=== PATIENT | male | born 1975 | race Caucasian/White ===

== ENCOUNTER 2017-07-13 12:42 | Emergency (ER) | payer OTHER ==
[~2017-07-13] VITALS: Ht 190.5 cm; Wt 122.5 kg
[~2017-07-13 12:42] MED LIST: CEPHALEXIN500 MG PO; IBUPROFEN600 MG PO; NORCO 5-325 TA1 EACH PO
[2017-07-13] MEDS ORDERED: LYRICA150 MG PO (13:18)
[2017-07-13] MEDS ORDERED: NORCO 7.5-3251 EACH PO (13:19)
--- OUTSIDE RECORDS SUMMARY | 2017-07-13 13:24 | XMS | Clinical Summary ---
Demographics + + + | Address | [address] | | | [place] [address] | + + + | Home Phone | | + + + | Preferred Language | Unknown | + + + | Marital Status | Single | + + + | Anabaptist Affiliation | Unknown | + + + | Race | Unknown | + + + | Ethnic Group | Unknown | + + + Author + + + | Author | [facility] | + + + | Organization | [facility] | + + + | Address | Unknown | + + + | Phone | Unavailable | + + + Support + + +---------+ + | Name | Relationship | Address | Phone | + + +---------+ + | Fanny Cano | ECON | Unknown | | + + +---------+ + Care Team Providers + +------+ + | Care Sand Cutting Machine Operator Name | Role | Phone | + +------+ + | Ryan Brown DO | PP | | + +------+ + Allergies Not on File Current Medications + + +-------+---------+------+------+-------+ | Prescription | Sig. | Disp. | Refills | Star | End | Statu | | | | | | t | Date | s | | | | | | Date | | | + + +-------+---------+------+------+-------+ | atorvastatin | | | | 09/2 | | Activ | | (LIPITOR) 40 MG | | | | 1/20 | | e | | tablet | | | | 16 | | | + + +-------+---------+------+------+-------+ | gabapentin | | | | 07/1 | | Activ | | (NEURONTIN) 300 MG | | | | 2/20 | | e | | capsule | | | | 16 | | | + + +-------+---------+------+------+-------+ | | | | | 09/2 | | Activ | | HYDROcodone-acetamin | | | | 2/20 | | e | | ophen (NORCO) 10-325 | | | | 16 | | | | MG per tablet | | | | | | | + + +-------+---------+------+------+-------+ | lisinopril | | | | 09/2 | | Activ | | (ZESTRIL) 10 MG | | | | 1/20 | | e | | tablet | | | | 16 | | | + + +-------+---------+------+------+-------+ | metFORMIN | | | | 09/2 | | Activ | | (GLUCOPHAGE-XR) 500 | | | | 1/20 | | e | | MG 24 hr tablet | | | | 16 | | | + + +-------+---------+------+------+-------+ | insulin glargine | Inject 26 Units into | | | | | Activ | | (LANTUS) 100 UNIT/ML | the skin nightly. | | | | | e | | injection | | | | | | | + + +-------+---------+------+------+-------+ | insulin aspart | Inject 10 Units into | | | | | Activ | | (NOVOLOG) 100 | the skin 3 (three) | | | | | e | | UNIT/ML injection | times daily before | | | | | | | | meals. | | | | | | + + +-------+---------+------+------+-------+ Active Problems No known active problems Family History + + +------+ + | Medical History | Relation | Name | Comments | + + +------+ + | Diabetes type II | Father | | | + + +------+ + + +------+--------+ + | Relation | Name | Status | Comments | + +------+--------+ + | Father | | | | + +------+--------+ + Social History + +-------+ +--------+------+ | Tobacco Use | Types | Packs/Day | Years | Date | | | | | Used | | + +-------+ +--------+------+ | Current Every Day | | 0.5 | | | | Smoker | | | | | + +-------+ +--------+------+ + + +---------+ + | Alcohol Use | Drinks/We | oz/Week | Comments | | | ek | | | + + +---------+ + | No | | | | + + +---------+ + + + + | Sex Assigned at | Date Recorded | | | | + + + | Not on file | | + + + Last Filed Vital Signs + + + + | Vital Sign | Reading | Time Taken | + + + + | Blood Pressure | 112/78 | 06/17/2016 3:51 PM PDT | + + + + | Pulse | 98 | 06/17/2016 3:51 PM PDT | + + + + | Temperature | - | - | + + + + | Respiratory Rate | - | - | + + + + | Oxygen Saturation | 98% | 06/17/2016 3:51 PM PDT | + + + + | Inhaled Oxygen | - | - | | Concentration | | | + + + + | Weight | 124.6 kg (274 lb | 06/17/2016 3:51 PM PDT | | | 12.8 oz) | | + + + + | Height | - | - | + + + + | Body Mass Index | - | - | + + + + Plan of Treatment + + + + + | Health Maintenance | Due Date | Last Done | Comments | + + + + + | Vaccine: | | | | | Dtap/Tdap/Td (1 - | 2 | | | | Tdap) | | | | + + + + + | Vaccine: | | | | | Pneumococcal 19-64 | 2 | | | | (PPSV23 only) Medium | | | | | Risk (1 of 1 - | | | | | PPSV23) | | | | + + + + + | Vaccine: Influenza | | | | | (Season Ended) | 8 | | | + + + + + Results Not on filefrom Last 3 Months Insurance + +--------+ +------+-------+ + | Payer | Benefi | Subscriber | Type | Phone | Address | | | t Plan | ID | | | | | | / | | | | | | | Group | | | | | + +--------+ +------+-------+ + | MEDICAID | [facility] | xxxxxxxx | | | [address] | | | [place] | | | | [place] | | | [place] | | | | [phone] | | | 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
--- OUTSIDE RECORDS SUMMARY | 2017-07-13 13:24 | XMS | Clinical Summary ---
Demographics + + + | Address | [address] | | | [place] [address] | + + + | Home Phone | | + + + | Preferred Language | Unknown | + + + | Marital Status | | + + + | Mormon Affiliation | UNK | + + + | Race | White | + + + | Ethnic Group | Not or | + + + Author + + + | Author | [facility] | + + + | Organization | [facility] | + + + | Address | Unknown | + + + | Phone | Unavailable | + + + Support + + +---------+ + | Name | Relationship | Address | Phone | + + +---------+ + | none per patient | ECON | Unknown | Unavailable | + + +---------+ + Care Team Providers + +------+ + | Care Car Supervisor Name | Role | Phone | + +------+ + | No Pcp Per Patient | PP | Unavailable | + +------+ + Source Comments JULIENNE is fully live on both [facility] and [facility] Allergies + + + + + + | Active Allergy | Reactions | Severity | Noted | Comments | | | | | Date | | + + + + + + | Penicillin G | | | 10/03/19 | | | | | | 09 | | + + + + + + Current Medications + + + +---------+------+------+-------+ | Prescription | Sig. | Disp. | Refills | Star | End | Statu | | | | | | t | Date | s | | | | | | Date | | | + + + +---------+------+------+-------+ | | Take 1 Tab by mouth | | | | | Activ | | pseudoephedrine-acet | every six hours as | | | | | e | | aminophen (TYLENOL | needed. | | | | | | | SINUS DAY-NIGHT | | | | | | | | PACK) 30-500 mg Oral | | | | | | | | Tablet | | | | | | | + + + +---------+------+------+-------+ | | Take 1 Tab by mouth | 24 | 0 | 07/1 | | Activ | | hydrocodone-acetamin | every four hours as | (twenty | | 3/20 | | e | | ophen 5-500 mg Oral | needed. NTE 8 tabs | frou) | | 09 | | | | Tablet | per day. | | | | | | + + + +---------+------+------+-------+ | oxymetazoline 0.05 | Instill 2 Sprays | 15 ml | 0 | 07/1 | | Activ | | % Nasal Aerosol, | into each nostril | | | 3/20 | | e | | [place] | two times daily. Use | | | 09 | | | | | for only 3 days. | | | | | | + + + +---------+------+------+-------+ Active Problems Not on file Social History + +-------+ +--------+------+ | Tobacco Use | Types | Packs/Day | Years | Date | | | | | Used | | + +-------+ +--------+------+ | Never Assessed | | | | | + +-------+ +--------+------+ + + + | Sex Assigned at | Date Recorded | | | | + + + | Not on file | | + + + Last Filed Vital Signs + + + + | Vital Sign | Reading | Time Taken | + + + + | Blood Pressure | 129/87 | 10/02/2008 4:26 PM PDT | + + + + | Pulse | 106 | 10/02/2008 4:26 PM PDT | + + + + | Temperature | 37 C (98.6 F) | 10/02/2008 4:26 PM PDT | + + + + | Respiratory Rate | 16 | 10/02/2008 4:26 PM PDT | + + + + | Oxygen Saturation | 97% | 10/02/2008 4:26 PM PDT | + + + + | Inhaled Oxygen | - | - | | Concentration | | | + + + + | Weight | - | - | + + + + | Height | - | - | + + + + | Body Mass Index | - | - | + + + + Plan of Treatment + + + + + | Health Maintenance | Due Date | Last Done | Comments | + + + + + | INFLUENZA VACCINE | | | | | (FLU SHOT) | 8 | | | + + + + + Results Not on filefrom Last 3 Months"
--- OUTSIDE RECORDS SUMMARY | 2017-07-13 13:24 | XMS | Clinical Summary ---
Demographics + + + | Address | [address] | | | [place] [address] | + + + | Home Phone | | + + + | Preferred Language | Unknown | + + + | Marital Status | Single | + + + | Scientologist Affiliation | Unknown | + + + | Race | Unknown | + + + | Ethnic Group | Unknown | + + + Author + + + | Author | [facility] | + + + | Organization | [facility] | + + + | Address | Unknown | + + + | Phone | Unavailable | + + + Support + + +---------+ + | Name | Relationship | Address | Phone | + + +---------+ + | Fanny Cano | ECON | Unknown | | + + +---------+ + Care Team Providers + +------+ + | Care Senior Product Analyst Name | Role | Phone | + [...] + +--------+ +------+-------+ + | MEDICAID | [facility] | xxxxxxxx | | | [address] | | | N | | | | [place] | | | [place] | | | | [phone] | | | 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
--- OUTSIDE RECORDS SUMMARY | 2017-07-13 13:24 | XMS | Clinical Summary ---
Demographics + + + | Address | [address] | | | [place] [address] | + + + | Home Phone | | + + + | Preferred Language | Unknown | + + + | Marital Status | | + + + | Zoroastrian Affiliation | UNK | + + + [...] Team Providers + +------+ + | Care Billing Specialist Name | Role | Phone | + +------+ + | No Pcp Per Patient | PP | Unavailable | + +------+ + Source Comments JULIENNE is fully live on both [facility] Ambulatory and [facility] InPatient.[facility] Allergies + + + + + [...] | 3/20 | | e | | [place] | two times daily. Use | | [...]
[2017-07-13] MEDS ORDERED: CLEOCIN HCL300 MG PO (15:59)
== END 2017-07-13 17:00 | disposition home or self-care (01) ==
LOC: ED 12:42
PROC: 2W38X1Z Immobilization of Right Upper Extremity using Splint (ICD-10-PCS; principal; 2017-07-13)
DX: S91.111A Laceration without foreign body of right great toe without damage to nail, initial encounter (principal); E11.9 Type 2 diabetes mellitus without complications; F17.200 Nicotine dependence, unspecified, uncomplicated; Z88.0 Allergy status to penicillin; Z79.899 Other long term (current) drug therapy; Z89.412 Acquired absence of left great toe; X58.XXXA Exposure to other specified factors, initial encounter
CPT/HCPCS: 29515; 36415; 73660; 80053; 85025; 99283

== ENCOUNTER 2017-07-27 17:59 | Emergency (ER) | payer OTHER ==
[~2017-07-27] VITALS: Ht 190.5 cm; Wt 122.5 kg
[~2017-07-27 17:59] MED LIST changes: +CLEOCIN HCL300 MG PO; +LYRICA150 MG PO; +NORCO 7.5-3251 EACH PO
[2017-07-27] MEDS ORDERED: CEPHALEXIN500 MG PO (19:27)
[2017-07-27] MEDS ORDERED: BACTRIM DS TAB1 EACH PO (19:27)
== END 2017-07-27 19:48 | disposition home or self-care (01) ==
LOC: ED 17:59
DX: E11.628 Type 2 diabetes mellitus with other skin complications (principal); L08.9 Local infection of the skin and subcutaneous tissue, unspecified; E11.9 Type 2 diabetes mellitus without complications; F17.200 Nicotine dependence, unspecified, uncomplicated; Z88.0 Allergy status to penicillin; Z79.899 Other long term (current) drug therapy
CPT/HCPCS: 99283

== ENCOUNTER 2017-12-23 13:08 | Observation (INO) | payer OTHER ==
[~2017-12-23] VITALS: Ht 190.5 cm; Wt 122.7 kg
--- OUTSIDE RECORDS SUMMARY | ~2017-12-23 | XMS | Encounter Summary ---
Demographics + + + | Address | [address] [place] [address] | | | [place] [address] | + + + | Home Phone | | + + + | Preferred Language | Unknown | + + + | Marital Status | | + + + | Caodaism Affiliation | Unknown | + + + | Race | Unknown | + + + | Ethnic Group | Unknown | + + + Author + + + | Author | [facility] | | | [facility] [place] | + + + | Organization | [facility] | | | [facility] [place] | + + + | Address | Unknown | + + + | Phone | Unavailable | + + + Support + + +---------+ + | Name | Relationship | Address | Phone | + + +---------+ + | [place]anny [place] | ECON | Unknown | | + + +---------+ + Care Team Providers + +------+ + | Care Electric Range Assembler Name | Role | Phone | + +------+ + | Ryan Brown DO | PCP | | + +------+ + Encounter Details +--------+ + + + + | Date | Type | Department | Care Team | Description | +--------+ + + + + | 10/14/ | Procedure | [facility] | | | | 2017 | Pass | [facility] | | | | | | [address] | | | | | | [place] | | | | | | [phone] | | | | | | [phone] | | | +--------+ + + + + Social History + +-------+ +--------+------+ | Tobacco Use | Types | Packs/Day | Years | Date | | | | | Used | | + +-------+ +--------+------+ | Current Every Day | | 0.5 | 20 | | | Smoker | | | | | + +-------+ +--------+------+ + +---+---+---+ | Smokeless Tobacco: | | | | | Former User | | | | + +---+---+---+ + + +---------+ + | Alcohol Use | Drinks/We | oz/Week | Comments | | | ek | | | + + +---------+ + | No | | | | + + +---------+ + + + + | Sex Assigned at | Date Recorded | | | | + + + | Not on file | | + + + as of this encounter Plan of Treatment Not on fileas of this encounter Visit Diagnoses Not on filein this encounter"
--- OUTSIDE RECORDS SUMMARY | ~2017-12-23 | XMS | Encounter Summary ---
Demographics + + + | Address | [address] [place] [address] | | | [place] [address] | + + + | Home Phone | | + + + | Preferred Language | Unknown | + + + | Marital Status | | + + + | Worship Affiliation | Unknown | + + + | Race | Unknown | + + + | Ethnic Group | Unknown | + + + Author + + + | Author | [facility] | | | and [place] | + + + | Organization | [facility] | | [...] Team Providers + +------+ + | Care Supervisor [employer]ing Cler[employer] Name | Role | Phone | + +------+ + | Ryan Brown DO | PCP | | + +------+ + Reason for Visit Auth/Cert +--------+--------+ + + + + | Status | Reason | Specialty | Diagnoses / | Referred By | Referred To | | | | | Procedures | Contact | Contact | +--------+--------+ + + + + | | | | Diagnoses | | | | | | | Right foot | | | | | | | pain Right | | | | | | | Foot Pain | | | | | | | Procedures | | | | | | | Right Big | | | | | | | Toe Wound | | | | | | | Debridement | | | | | | | w/ Removal | | | | | | | of All | | | | | | | Nonviable | | | | | | | Tissue w/ | | | | | | | Percutaneous | | | | | | | Achilles | | | | | | | Tendon | | | | | | | Lengthening | | | +--------+--------+ + + + + Encounter Details +--------+---------+ + + + | Date | Type | Department | Care Team | Description | +--------+---------+ + + + | 10/21/ | [facility] | [facility] | Kaela Gonzales, | Right Big Toe Wound | | 2018 | | [facility] | DPM [address] | Debridement w/ | | | | [address] | [place], [place] | Removal of All | | | | [place], [place] | [address] | Nonviable Tissue | | | | [phone] | [phone] | | | | | [phone] | | | +--------+---------+ + + + Social History + + [...] + + + as of this encounter Last Filed Vital Signs + + + [...] | Body Mass Index | 33.95 | 10/21/2017 0628 PDT | + + + + in this encounter Discharge Instructions Tyrel Hartman RN - 10/21/2017Formatting of this note may be different from the origi nal. Discharge Instructions for Foot Surgery Arrange to have an adult drive you home after surgery. If you had general anesthesia, it ma y take a day or more to fully recover. So, for at least the next 24 hours: Do not drive or u se machinery or power tools; do not drink alcohol; and do not make any major decisions. Diet Here are some dietary suggestions following surgery: Start with liquids and light foods (like dry toast, bananas, and applesauce). As you fee l up to it, slowly return to your normal diet. Drink at least6 to8 glasses of water or other nonalcoholic fluids a day. To avoid nausea, eat before taking narcotic pain medicines. Medicines It is important to follow these directions: Take all medicines as instructed. Take pain medicines on time. Do not wait until the pain is bad before taking your medici stan. Avoid alcohol while on pain medicines. Activity These instructions are to help with your recovery: Sit or lie down when possible. Put a pillow under your heel to raise your foot above the level of your heart. Wrap an ice pack or bag of frozen peas in a thin cloth. Place it over your bandaged foot for no longer than 20 minutes. Do this three times a day. You can drive again in seven days or as instructed by your healthcare provider. Wear your surgical shoe at all times unless told otherwise by your healthcare provider. Use crutches or a cane as directed. Follow your healthcare provider s instructions about putting weight on your foot. Bandage and cast care Here are tips to follow: Do not shower for 48 hours. When you can shower again, cover the bandage or cast with a plastic bag to keep it dry. Don t remove your bandage until your healthcare providertells you to. If your bandag e gets wet or dirty, check with your healthcare provider. You can likely replace it with a c lean, dry one. What to expect It is normal to have the following: Bruising and slight swelling of the foot and toes A small amount of blood on the dressing Callyour healthcare provider Contact your healthcare provider right away if you have any of the following: Continuous bleeding through the bandage Excessive swelling, increased bleeding, or redness Fever over 100.4F (38C) or chills Pain unrelieved by pain medicines Foot feels cold to the touch or numb Increased ache in your leg or foot Chest pain or shortness of breath Anything unusual that concerns you Date Last Reviewed: 12/16/201419990793-2757 [employer]. [address] [place] [address]. All righ ts reserved. This information is not intended as a substitute for professional medical care. Always follow your healthcare professional's instructions. Protecting Your Foot After Foot Surgery To help the bone heal properly, you may need to wear a cast. If you do, always keep it dry. Yourhealthcare providerwill tell you whether you can bear weight on your foot while it heals. He or she may also prescribe a surgical shoe for you to wear. Casts A cast is sometimes needed after foot surgery to help the bone heal right. When you wear a cast, your foot stays in place during the healing process. Some casts are weight-bearing, wh ile others are not. Your affected bone is strong enough for weight-bearing in aboutsix wee ks. But the bone takes aboutsix months to regain normal strength. Weight-bearing Bearing weight and walking can improve blood flow and promote healing. But don t overuse your foot. If you do, you may have a harder time healing after surgery. So, be sure to follo w yourhealthcare provider's instructions. Walking aids Yourhealthcare provider may also tell you to use a cane, crutches, or a walker. That way, you can keep all or part of your weight off your foot. These devices also give you support as you walk. You will be shown how to use walking aids properly. Surgical shoes A surgical shoe can protect the foot as it heals. Yourhealthcare provider will tell you w hen you can start wearing your own shoe again. Date Last Reviewed: 01/04/201519998716-5756 [employer]. [address] [place] [address], [place] [address]. All righ ts reserved. This information is not intended as a substitute for professional medical care. Always follow your healthcare professional's instructions. in this encounter Medications at Time of Discharge + + +--------+---------+ + + | Medication | Sig. | Disp. | Refills | Start | End Date | | | | | | Date | | + + +--------+---------+ + + | | Take 1 tablet by | 15 | 0 | 10/08/19 | | | HYDROcodone-acetamin | mouth every 6 hours | tablet | | 18 | | | ophen (NORCO) 5-325 | as needed for Pain. | | | | | | mg per tablet | | | | | | + + +--------+---------+ + + | insulin aspart | Inject under the | | | | | | (NOVOLOG PENFILL) | skin 3 times daily | | | | | | 100 units/mL | (before meals). | | | | | | injection cartridge | | | | | | + + +--------+---------+ + + | insulin glargine | Inject 60 Units | | | | | | (LANTUS) 100 | under the skin | | | | | | units/mL injection | nightly. | | | | | | (vial) | | | | | | + + +--------+---------+ + + | insulin lispro | Inject under the | | | | | | (HUMALOG) 100 | skin 3 times daily | | | | | | units/mL injection | (before meals). | | | | | | (cartridge) | | | | | | + + +--------+---------+ + + | metFORMIN | Take 1,000 mg by | | | | | | (GLUCOPHAGE) 1000 MG | mouth 2 times daily | | | | | | tablet | (with breakfast & | | | | | | | dinner). | | | | | + + +--------+---------+ + + as of this encounter Plan of Treatment Not on fileas of this encounter Procedures + +--------+ + + + | Procedure Name | Priori | Date/Time | Associated Diagnosis | Comments | | | ty | | | | + +--------+ + + + | POC GLUCOSE | Routin | 10/21/2017 | | Results for this | | | e | 1220 PDT | | procedure are in the | | | | | | results section. | + +--------+ + + + | POC GLUCOSE | Routin | 10/21/2017 | | Results for this | | | e | 1003 PDT | | procedure are in the | | | | | | results section. | + +--------+ + + + | POC GLUCOSE | Routin | 10/21/2017 | | Results for this | | | e | 0854 PDT | | procedure are in the | | | | | | results section. | + +--------+ + + + | REPAIR ACHILLES | | 10/21/2017 | Right Foot Pain | | | TENDON | | 0745 PDT | | | + +--------+ + + + | POC GLUCOSE | Routin | 10/21/2017 | | Results for this | | | e | 0649 PDT | | procedure are in the | | | | | | results section. | + +--------+ + + + in this encounter Results POC Glucose (10/21/2017 1220) + +---------+ + + | Component | Value | Ref Range | Performed At | + +---------+ + + | Glucose, POC | 431 (H) | 70 - 109 mg/dL | [facility] | | | | | [facility] | | | | | CENTER - | | | | | LABORATORY | + +---------+ + + + + | Specimen | + + | Blood | + + + + + + + | Performing | Address | City/State/Zipcode | Phone Number | | Organization | | | | + + + + + | [facility] | [address] | [place] | [phone] | | [facility] | | [address] | | | - LABORATORY | | | | + + + + + | [facility] | [address] | [place] | | | [facility] | | [address] | | | - LABORATORY | | | | + + + + + POC Glucose (10/21/20171002) + +---------+ + + | Component | Value | Ref Range | Performed At | + +---------+ + + | Glucose, POC | 419 (H) | 70 - 109 mg/dL | [facility] | | | | | [facility] | | | | | [facility] - | | | | | LABORATORY | + +---------+ + + + + | Specimen | + + | Blood | + + + + + + + | Performing | Address | City/State/Zipcode | Phone Number | | Organization | | | | + + + + + | [facility] | [address] | [place] | [phone] | | [facility] | | [address] | | | - LABORATORY | | | | + + + + + | [facility] | [address] | [place] | | | [facility] | | [address] | | | - LABORATORY | | | | + + + + + POC Glucose (10/21/201754) + +---------+ + + | Component | Value | Ref Range | Performed At | + +---------+ + + | Glucose, POC | 338 (H) | 70 - 109 mg/dL | [facility]. | | | | | [facility] | | | | | CENTER - | | | | | LABORATORY | + +---------+ + + + + | Specimen | + + | Blood | + + + + + + + | Performing | Address | City/State/Zipcode | Phone Number | | Organization | | | | + + + + + | [facility] | [address] | [place], [place] | [phone] | | [facility] | | [address] | | | - LABORATORY | | | | + + + + + | [facility] | [address] | [place], [place] | | | [facility] | | [address] | | | - LABORATORY | | | | + + + + + POC Glucose (10/21/201749) + +---------+ + + | Component | Value | Ref Range | Performed At | + +---------+ + + | Glucose, POC | 372 (H) | 70 - 109 mg/dL | [facility] | | | | | [facility] | | | | [facility] - | | | | | LABORATORY | + +---------+ + + + + | Specimen | + + | Blood | + + + + + + + | Performing | Address | City/State/Zipcode | Phone Number | | Organization | | | | + + + + + | [facility] | [address] | [place], [place] | [phone] | | [facility] | | [address] | | | - LABORATORY | | | | + + + + + | [facility] | [address] | [place], [place] | | | [facility] | | [address] | | | - LABORATORY | | | | + + + + + in this encounter Visit Diagnoses Not on filein this encounter Admitting Diagnoses + + | Diagnosis | + + | Right foot pain - Right Foot Pain | + + | Pain in limb | + + Administered Medications + +--------+---------+------+------+------+ | Medication Order | MAR | Action | Dose | Rate | Site | | | Action | Date | | | | + +--------+---------+------+------+------+ + +---+ | albuterol 2.5 mg/3 mL nebulizer | | | solution 2.5 mg 2.5 mg, | | | Nebulization, ONCE PRN, Wheezing, | | | Starting Thu10/21/17 at 0827, For | | | 1 dose, Notify anesthesia if | | | patient is wheezing and does not | | | have a history of asthma or COPD | | | or current smoking. | | + +---+ | | | + +---+ | dextrose 50% injection 12.5-25 | | | g 12.5-25 g, Intravenous, EVERY | | | 15 MIN PRN, Low Blood Sugar, Give | | | 12.5g (25 mL) IV if blood | | | glucose 50-69 mg/dL. Give 25g | | | (50 mL) IV if blood glucose < 50, | | | Starting Thu10/21/17 at 0635, | | | Repeat in 15 min if blood glucose | | | remains < 70 mg/dL. Repeat | | | blood glucose in 30 min once | | | blood glucose > 70. | | + +---+ | | | + +---+ | dextrose 50% injection 12.5-25 | | | g 12.5-25 g, Intravenous, EVERY | | | 15 MIN PRN, Low Blood Sugar, For | | | hypoglycemia. Give 12.5g (25ml) | | | IV if blood glucose 50-69 | | | mg/dL. Give 25g (50ml) IV if | | | blood glucose < 50, Starting Wed | | | 10/21/17 at 0827, Give over 2 min. | | | Repeat in 15 min if blood | | | glucose remains < 70 mg/dL. | | | Repeat blood glucose in 30 min | | | once blood glucose > 70. | | + +---+ | | | + +---+ | dextrose 50% injection 12.5-25 | | | g 12.5-25 g, Intravenous, EVERY | | | 15 MIN PRN, Low Blood Sugar, For | | | hypoglycemia. Give 12.5g (25ml) | | | IV if blood glucose 50-69 | | | mg/dL. Give 25g (50ml) IV if | | | blood glucose < 50, Starting Wed | | | 10/21/17 at 0838, Give over 2 min. | | | Repeat in 15 min if blood | | | glucose remains < 70 mg/dL. | | | Repeat blood glucose in 30 min | | | once blood glucose > 70. | | + +---+ | | | + +---+ | ePHEDrine 50 mg/mL injection 5 | | | mg 5 mg, Intravenous, EVERY 5 | | | MIN PRN, if SBP <90., Starting | | | Thu10/21/17 at 0827, Hold if HR > | | | 100. Maximum total dose 20mg. | | + +---+ | | | + +---+ | glucagon (GLUCAGEN) injection 1 | | | mg 1 mg, Subcutaneous, PRN, | | | Give if blood glucose < 70 and no | | | IV present and patient is | | | unresponsive or poorly | | | responsive, Starting Thu10/21/17 | | | at 0838, Recovery/Phase I | | + +---+ | | | + +---+ | glycopyrrolate (ROBINUL) | | | injection 0.2 mg 0.2 mg, | | | Intravenous, PRN, Bradycardia, | | | For HR <50, Starting Thu10/21/17 | | | at 0827, For 2 doses, May repeat | | | one time after 1min | | + +---+ | | | + +---+ | HYDROmorphone (DILAUDID) | | | injection 0.2-0.5 mg 0.2-0.5 mg, | | | Intravenous, EVERY 10 MIN PRN, | | | Pain, Starting Thu10/21/17 at | | | 0827, Maximum total dose 4 mg. | | | PACU IV Narcotic Priority: Only | | | use fentanyl for immediate | | | post-op pain (one dose) or | | | breakthrough pain when any other | | | IV narcotics ordered have been | | | ineffective (if ordered). If | | | both morphine and hydromorphone | | | are ordered, use morphine first, | | | and use hydromorphone if morphine | | | ineffective. | | + +---+ | | | + +---+ + +-------+ +---------+---+ + | insulin lispro (humaLOG | Given | 10/21/2017 | 8 Units | | Abdomen- | | KWIKPEN) 100 units/mL injection | | 9:02 | | | RLQ | | (pen) 0-12 Units 0-12 Units, | | PDT | | | | | Subcutaneous, PRN, Give every 2 | | | | | | | hours as needed, Starting Thu | | | | | | | 10/21/17 at 0838, CORRECTION | | | | | | | INSULIN FSBG less than 70 = | | | | | | | Follow dextrose 50% order | | | | | | | 71 - 150 = no | | | | | | | insulin 151 - | | | | | | | 200 = 2 units | | | | | | | 201 - 250 = 4 units | | | | | | | 251 - 300 = 6 units | | | | | | | 301 - 350 = 8 units | | | | | | | 351 - 400 = 10 | | | | | | | units greater than 400 = | | | | | | | 12 units | | | | | | + +-------+ +---------+---+ + +-------+ + +---+ + | Given | 10/21/2017 | 12 Units | | Abdomen- | | | 11:30 | | | RLQ | | | PDT | | | | +-------+ + +---+ + + +---+ | | | + +---+ | labetalol (TRANDATE) 5 mg/mL | | | injection 5 mg 5 mg, | | | Intravenous, EVERY 5 MIN PRN, For | | | SBP > 180, DBP > 100, Starting | | | 10/21/17 at 0827, Hold if HR < | | | 60. Maximum total dose 300mg. | | | Notify anesthesia if patient | | | requires more than 50mg. | | + +---+ | | | + +---+ + +---------+ +---+-------+---+ | lactated ringers (LR) infusion | New Bag | 10/21/2017 | | 100 | | | at 10-100 mL/hr, Intravenous, | | 6:52 | | mL/hr | | | CONTINUOUS, Starting 10/21/17 | | PDT | | | | | at 0700, TKO. | | | | | | + +---------+ +---+-------+---+ +---------+ +---+---+---+ | New Bag | 10/21/2017 | | | | | | 7:31 | | | | | | PDT | | | | +---------+ +---+---+---+ | New Bag | 10/21/2017 | | | | | | 8:24 | | | | | | PDT | | | | +---------+ +---+---+---+ +---+---+ | | | +---+---+ + +-------+ + +---+ + | mupirocin (BACTROBAN) 2% | Given | 10/21/2017 | 1 | | Surgical | | ointment PRN, Starting Wed | | 8:25 | Applicat | | Site | | 10/21/17 at 0825, Intra-op | | PDT | ion | | | + +-------+ + +---+ + + +---+ | | | + +---+ | ondansetron (ZOFRAN) injection | | | 4 mg 4 mg, Intravenous, ONCE | | | PRN, Nausea, Starting 10/21/17 | | | at 0827, For 1 dose, | | | Recovery/Phase I | | + +---+ | | | + +---+ | promethazine (PHENERGAN) (IV | | | ONLY) injection 6.25 mg 6.25 mg, | | | Intravenous, EVERY 15 MIN PRN, | | | Nausea, Vomiting, Starting Wed | | | 10/21/17 at 0827, For 4 doses, | | | TAKE PRECAUTIONS WHEN | | | ADMINISTERING Dilute to 10-20mL | | | with NS. Give over 2-3 minutes | | | into large vein. Use ondansetron | | | first if both are ordered. | | + +---+ | | | + +---+ in this encounter
--- OUTSIDE RECORDS SUMMARY | ~2017-12-23 | XMS | Clinical Summary ---
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 | Disp. | Refills | Star | End | Statu | | | | | | t | Date | s | | | | | | Date | | | + + +--------+---------+------+------+-------+ | insulin aspart | Inject under the | | | | | Activ | | (NOVOLOG PENFILL) | skin 3 times daily | | | | | e | | 100 units/mL | (before meals). | | | | | | | injection cartridge | | | | | | | + + +--------+---------+------+------+-------+ | metFORMIN | Take 1,000 mg by | | | | | Activ | | (GLUCOPHAGE) 1000 MG | mouth 2 times daily | | | | | e | | tablet | (with breakfast & | | | | | | | | dinner). | | | | | | + + +--------+---------+------+------+-------+ | insulin glargine | Inject 60 Units | | | | | Activ | | (LANTUS) 100 | under the skin | | | | | e | | units/mL injection | nightly. | | | | | | | (vial) | | | | | | | + + +--------+---------+------+------+-------+ | | Take 1 tablet by | 15 | 0 | 07/1 | | Activ | | HYDROcodone-acetamin | mouth every 6 hours | tablet | | 8/20 | | e | | ophen (NORCO) 5-325 | as needed for Pain. | | | 18 | | | | mg per tablet | | | | | | | + + +--------+---------+------+------+-------+ | insulin lispro | Inject under the | | | | | Activ | | (HUMALOG) 100 | skin 3 times daily | | | | | e | | units/mL injection | (before meals). | | | | | | | (cartridge) | | | | | | | + + +--------+---------+------+------+-------+ Active Problems + + + | Problem | Noted Date | + + + | Infection of toe | 10/14/2017 | + + + | Lymphedema | 10/14/2017 | + + + | Laceration of great toe | 10/14/2017 | + + + | Peripheral circulatory disorder associated with type 2 diabetes | 10/14/2017 | | mellitus (HCC) | | + + + | DASHAWN inhibitors - Daily Use | 10/14/2017 | + + + | Diabetes mellitus, type II - INSULIN & ORAL Control | 10/14/2017 | + + + | Obesity, Class II, BMI 35-39.9 | 10/14/2017 | + + + | Neuropathic ulcer of foot due to type 2 diabetes mellitus (HCC) | 10/12/2014 | + + + | Chronic osteomyelitis involving ankle and foot (HCC) | 10/11/2014 | + + + | Hyperlipidemia | 10/05/2012 | + + + | Vitamin D deficiency | 10/05/2012 | + + + | Hypertension | 08/18/2012 | + + + Encounters +--------+ + + + + | Date | Type | Specialty | Care Team | Description | +--------+ + + + + | 10/21/ | Hospital | | Kaela Gonzales, | Laceration of right | | 2017 | Encounter | | DPM | great toe without | | | | | | foreign body present | | | | | | or damage to nail, | | | | | | sequela (Primary Dx) | +--------+ + + + + | 10/21/ | Procedure | | | | | 2017 | Pass | | | | +--------+ + + + + | 10/21/ | Surgery | | Kaela Gonzales, | Right Big Toe Wound | | 2018 | | | DPM | Debridement w/ | | | | | | Removal of All | | | | | | Nonviable Tissue | +--------+ + + + + | 10/20/ | Anesthesia | | Lisa Lugo | | | 2018 | Event | | DO Sridhar | | +--------+ + + + + | 10/14/ | Procedure | | | | | 2018 | Pass | | | | +--------+ + + + + | 10/13/ | Anesthesia | | Scooby Jensen MD | | | 2018 | Event | | | | +--------+ + + + + | 10/07/ | Emergency | | Derian Orr S, | Skin ulcer of left | | 2018 | | | MD | foot with fat layer | | | | | | exposed (HCC) | | | | | | (Primary Dx); | | | | | | Diabetic ulcer of | | | | | | toe of left foot | | | | | | associated with type | | | | | | 2 diabetes | | | | | | mellitus, with fat | | | | | | layer exposed (HCC); | | | | | | Elevated blood | | | | | | pressure reading | +--------+ + + + + from Last 3 Months Social History + + + +--------+------+ | [...] Eye Exam | | | | | (Bi-Annually) | 1 | | | + + + + + | Diabetic Foot Exam | | | | | | 1 | | | + + + + + | Hemoglobin A1c Q3 | | | | | Months | 1 | | | + + [...] Vaccine: Influenza | | | | | (#1) | 8 | | | + + + + + Procedures + +--------+ + + + | [...] | + +--------+ + + + | ANE NERVE BLOCK | Routin | 10/21/2017 | | Results for this | | CATHETER NOTE | e | 0811 PDT | | procedure are in the | | | | | | results section. | + +--------+ + + + | ANE NERVE BLOCK | Routin | 10/21/2017 | | Results for this | | CATHETER NOTE | e | 0809 PDT | | procedure are in the | | | | | | results section. | + +--------+ + + + | ANE AIRWAY NOTE | Routin | 10/21/2017 | | Results for this | | | e | 0809 PDT | | procedure are in the [...] | + +--------+ + + + | C-REACTIVE PROTEIN, | STAT | 10/07/2017 | | Results for this | | HIGH SENSITIVITY | | 1437 PDT | | procedure are in the | | | | | | results section. | + +--------+ + + + | SEDIMENTATION RATE | STAT | 10/07/2017 | | Results for this | | | | 1437 PDT | | procedure are in the | | | | | | results section. | + +--------+ + + + | PROTIME INR | STAT | 10/07/2017 | | Results for this | | | | 1437 PDT | | procedure are in the | | | | | | results section. | + +--------+ + + + | PTT | STAT | 10/07/2017 | | Results for this | | | | 1437 PDT | | procedure are in the | | | | | | results section. | + +--------+ + + + | COMPREHENSIVE | STAT | 10/07/2017 | | Results for this | | METABOLIC PANEL | | 1437 PDT | | procedure are in the | | | | | | results section. | + +--------+ + + + | CBC W/AUTO | STAT | 10/07/2017 | | Results for this | | DIFFERENTIAL | | 1437 PDT | | procedure are in the | | | | | | results section. | + +--------+ + + + | CULTURE, BLOOD | STAT | 10/07/2017 | | Results for this | | | | 1437 PDT | | procedure are in the | | | | | | results section. | + +--------+ + + + | CULTURE, BLOOD | STAT | 10/07/2017 | | Results for this | | | | 1437 PDT | | procedure are in the | | | | | | results section. | + +--------+ + + + | XR FOOT RIGHT 3 + VW | STAT | 10/07/2017 | | Results for this | | | | 1427 PDT | | procedure are in the | | | | | | results section. | + +--------+ + + + from Last 3 Months Results POC Glucose (10/21/2017 1220)Only the most recent of 4 results within the time period is in cluded. + +---------+ + + | Component | Value | Ref Range | Performed At | + +---------+ + + | Glucose, POC | 431 (H) | 70 - 109 mg/dL | [facility] | | | | | [facility] [...] + | [facility] | [address] | [place], [place] | [phone] | | [facility] | | [address] | | | - LABORATORY | | | | + + + + + | [facility] | [address] | [place], [place] | | | [facility] | | [address] | | | - LABORATORY | | | | + + + + + Anesthesia Perineural Note (10/21/2017 0811) + + + | Narrative | Performed At | + + + | Lisa Lugo DO 10/21/2017 8:11 Perineural | | | Procedure Note 10/21/2017 7:45 Nerve block: popliteal sciatic | | | Laterality: right Continuous block with catheter: No | | | Indication: postoperative analgesia Preprocedure check: patient | | | identified, procedure and rescue equipment checked, preevaluation | | | including airway assessment complete, risks/benefits discussed, | | | consent obtained, timeout performed, reassessment prior to procedure | | | and monitors applied Patient position: supine Preparation: | | | chlorhexidine/isopropyl alcohol, 1% lidocaine infiltration Introducer | | | used: no Technique: ultrasound Radiology image stored in patient's | | | chart: ultrasound Needle: echogenic, stimulating, insulated and | | | short-bevel Needle size: 22 g Needle length: 4 in Medication | | | administered through: needle Negative findings: no blood aspirated | | | and no paresthesia Total volume of local anesthetic solution | | | administered: 15 mL Attempts: 1 Ease of procedure: easy | | | Comments: SpO2, NBP monitored during procedure and recorded in | | | anesthesia record. Ultrasound used to identify the popliteal | | | sciatic nerve, traced proximal to branching point. Under | | | continuous ultrasound guidance the Stimuplex needle was advanced to | | | the popliteal sciatic nerve proximity about 3 inches proximal to the | | | knee crease with needle tip visualized throughout. 15ml 0.5% | | | Ropivacaine with 5ml 2% lidocaine was injected in 5 ml increments | | | around the sciatic nerve with intermittent negative aspiration and | | | no paresthesias. Ultrasound image placed in chart. Please see | | | anesthesia record or flowsheet for vital sign documentation and see | | | anesthesia record or MAR for all medication documentation. | | | Performing provider: LISA LUGO | | | Electronically Signed by: Lisa Lugo | | | DO Mcgrathg date/time: 10/21/2017 | | | 8:11 | | + + + + + | Procedure Note | + + | Lisa Lugo, - 10/21/2017 0811 PDT Perineural Procedure Note10/21/2017 | | 7:45Nerve block: popliteal sciaticLaterality: rightContinuous block with catheter: | | NoIndication: postoperative analgesiaPreprocedure check: patient identified, procedure | | and rescue equipment checked, preevaluation including airway assessment complete, | | risks/benefits discussed, consent obtained, timeout performed, reassessment prior to | | procedure and monitors appliedPatient position: supinePreparation: | | chlorhexidine/isopropyl alcohol, 1% lidocaine infiltrationIntroducer used: noTechnique: | | ultrasoundRadiology image stored in patient's chart: ultrasoundNeedle: echogenic, | | stimulating, insulated and short-bevelNeedle size: 22 gNeedle length: 4 inMedication | | administered through: needleNegative findings: no blood aspirated and no | | paresthesiaTotal volume of local anesthetic solution administered: 15 mLAttempts: 1Ease | | of procedure: easyComments: SpO2, NBP monitored during procedure and recorded in | | anesthesia record. Ultrasound used to identify the popliteal sciatic nerve, traced | | proximal to branching point. Under continuous ultrasound guidance the Stimuplex needle | | was advanced to the popliteal sciatic nerve proximity about 3 inches proximal to the | | knee crease with needle tip visualized throughout. 15ml 0.5% Ropivacaine with 5ml 2% | | lidocaine was injected in 5 ml increments around the sciatic nerve with intermittent | | negative aspiration and no paresthesias. Ultrasound image placed in chart.Please see | | anesthesia record or flowsheet for vital sign documentation and see anesthesia record or | | MAR for all medication documentation.Performing provider: LISA LUGO | | GABRIELElectronically Signed by: DO Winsome Hope | | date/time: 10/21/2017 8:11 | |Comments: SpO2, NBP monitored during procedure and recorded in anesthesia record. Ultrasou nd used to identify the popliteal sciatic nerve, traced proximal to branching point. Under continuous ultrasound guidance the | |Stimuplex needle was advanced to the popliteal sciatic nerve proximity about 3 inches proxi mal to the knee crease with needle tip visualized throughout. 15ml 0.5% Ropivacaine with 5m l 2% lidocaine was injected in 5 | |ml increments around the sciatic nerve with intermittent negative aspiration and no paresth esias. Ultrasound image placed in chart. | | | |Please see anesthesia record or flowsheet for vital sign documentation and see anesthesia r ecord or MAR for all medication documentation. | | | | | |Performing provider: LISA LUGO | | | | | | | |Electronically Signed by: DO Wisnome Hope date/time: 018 8:11 | + + Anesthesia Perineural Note (10/21/2017 0809) + + + | Narrative | Performed At | + + + | Lisa Lugo DO 10/21/2017 8:10 Perineural | | | Procedure Note 10/21/2017 7:35 Nerve block: adductor canal-femoral | | | Laterality: right Indication: postoperative analgesia | | | Preprocedure check: patient identified, procedure and rescue equipment | | | checked, preevaluation including airway assessment complete, | | | risks/benefits discussed, consent obtained, timeout performed, | | | reassessment prior to procedure and monitors applied Patient | | | position: supine Preparation: chlorhexidine/isopropyl alcohol, 1% | | | lidocaine infiltration Technique: ultrasound Radiology image stored | | | in patient's chart: ultrasound Needle: echogenic, stimulating, | | | insulated and short-bevel Needle size: 21 g Needle length: 4 in | | | Medication administered through: needle Negative findings: no blood | | | aspirated and no paresthesia Total volume of local anesthetic | | | solution administered: 20 mL Attempts: 1 Ease of procedure: easy | | | Comments: SpO2, NBP monitored during procedure and recorded in | | | anesthesia record. Ultrasound used to identify femoral artery and | | | femoral nerve in adductor canal. Under continuous ultrasound | | | guidance the Stimuplex needle was advanced to the femoral nerve | | | proximity with needle tip visualized throughout. 15ml 0.5% | | | Ropivacaine with 5ml 2% lidocaine was injected in 5 ml increments | | | around the femoral nerve with intermittent negative aspiration and | | | no paresthesias. Ultrasound image placed in chart. Please see | | | anesthesia record or flowsheet for vital sign documentation and see | | | anesthesia record or MAR for all medication documentation. | | | Performing provider: LISA LUGO | | | Electronically Signed by: Lisa Lugo | | | ESig date/time: 10/21/2017 | | | 8:09 | | + + + + + | Procedure Note | + + | Lisa Lugo, - 10/21/2017 0809 PDT Perineural Procedure Note10/21/2017 | | 7:35Nerve block: adductor canal-femoralLaterality: rightIndication: postoperative | | analgesiaPreprocedure check: patient identified, procedure and rescue equipment checked, | | preevaluation including airway assessment complete, risks/benefits discussed, consent | | obtained, timeout performed, reassessment prior to procedure and monitors appliedPatient | | position: supinePreparation: chlorhexidine/isopropyl alcohol, 1% lidocaine | | infiltrationTechnique: ultrasoundRadiology image stored in patient's chart: | | ultrasoundNeedle: echogenic, stimulating, insulated and short-bevelNeedle size: 21 | | gNeedle length: 4 inMedication administered through: needleNegative findings: no blood | | aspirated and no paresthesiaTotal volume of local anesthetic solution administered: 20 | | mLAttempts: 1Ease of procedure: easyComments: SpO2, NBP monitored during procedure and | | recorded in anesthesia record. Ultrasound used to identify femoral artery and femoral | | nerve in adductor canal. Under continuous ultrasound guidance the Stimuplex needle was | | advanced to the femoral nerve proximity with needle tip visualized throughout. 15ml | | 0.5% Ropivacaine with 5ml 2% lidocaine was injected in 5 ml increments around the | | femoral nerve with intermittent negative aspiration and no paresthesias. Ultrasound | | image placed in chart.Please see anesthesia record or flowsheet for vital sign | | documentation and see anesthesia record or MAR for all medication | | documentation.Performing provider: LISA LUGOlectronically Signed by: | | Lisa Lugo DO ESig date/time: 10/21/2017 8:09 | |Comments: SpO2, NBP monitored during procedure and recorded in anesthesia record. Ultrasou nd used to identify femoral artery and femoral nerve in adductor canal. Under continuous ul trasound guidance the Stimuplex needle | |was advanced to the femoral nerve proximity with needle tip visualized throughout. 15ml 0 .5% Ropivacaine with 5ml 2% lidocaine was injected in 5 ml increments around the femoral ner ve with intermittent negative | |aspiration and no paresthesias. Ultrasound image placed in chart. | | | | | |Please see anesthesia record or flowsheet for vital sign documentation and see anesthesia r ecord or MAR for all medication documentation. | | | | | |Performing provider: LISA LUGO | | | | | | | |Electronically Signed by: Lisa Lugo DO ESig date/time: 018 8:09 | + + Anesthesia Airway Note (10/21/2017 0809) + + + | Narrative | Performed At | + + + | Lisa Lugo DO 10/21/2017 8:09 Anesthesia | | | Airway Placement 10/21/2017 8:03 Preprocedure check: patient | | | identified, oxygen, airway equipment checked, suction, airway | | | assessed and patient reassessment prior to induction Mask | | | ventilation: easy Attempts: 1 Airway type: laryngeal mask Size: | | | 5 Route, reference point: center of mouth Tube secured with: | | | adhesive tape Trauma: none Tube placement verification: bilateral | | | chest rise and carbon dioxide detection Performing provider: [place] | | | LISA CHRISTENSEN Electronically Signed by: Lisa Mata | | | DO [place] | | | ESig date/time: 10/21/2017 8:09 | | + + + + + | Procedure Note | + + | Lisa Lugo DO - 10/21/2017 0809 PDT Anesthesia Airway | | Placement10/21/2017 8:03Preprocedure check: patient identified, oxygen, airway equipment | | checked, suction, airway assessed and patient reassessment prior to inductionMask | | ventilation: easyAttempts: 1Airway type: laryngeal maskSize: 5Route, reference point: | | center of mouthTube secured with: adhesive tapeTrauma: noneTube placement verification: | | bilateral chest rise and carbon dioxide detectionPerforming provider: LISA LUGO | | GABRIELElectronically Signed by: DO Winsome Hope | | date/time: 10/21/2017 8:09 | |Route, reference point: center of mouth | |Tube secured with: adhesive tape | |Trauma: none | |Tube placement verification: bilateral chest rise and carbon dioxide detection | |Performing provider: LISA LUGO | | | | | |Electronically Signed by: Lisa Lugo DO ESig date/time : 10/21/2017 8:09 | | | + + CBC w/ Auto Differential (10/07/2017 1437) + + + + + | Component | Value | Ref Range | Performed At | + + + + + | WBC | 6.7 | 4.0 - 11.0 K/uL | [facility] | | | | [facility] - | | | | | LAB[facility]ATORY | + + + + + | RBC | 5.32 | 4.30 - 5.70 M/uL | [facility] | | | | | [facility] | | | | [facility] - | | | | | LAB[facility]ATORY | + + + + + | Hgb | 14.3 | 13.5 - 18.0 g/dL | [facility] | | | | | [facility] | | | | [facility] - | | | | | LAB[facility]ATORY | + + + + + | Hct | 42.0 | 40.0 - 51.0 % | [facility] | | | | | [facility] | | | | [facility] - | | | | | LAB[facility]ATORY | + + + + + | MCV | 78.9 (L) | 83.0 - 101.0 fL | [facility] | | | | | [facility] | | | | [facility] - | | | | | LAB[facility]ATORY | + + + + + | MCH | 26.9 (L) | 28.0 - 35.0 pg | [facility] | | | | | [facility] | | | | [facility] - | | | | | LAB[facility]ATORY | + + + + + | MCHC | 34.1 | 32.0 - 36.0 g/dL | [facility] | | | | | [facility] | | | | | [facility] - | | | | | LAB[facility]ATORY | + + + + + | RDW-CV | 13.5 | <15.0 % | [facility] | | | | [facility] | | | | [facility] - | | | | | LAB[facility]ATORY | + + + + + | Platelet Count | 153 | 140 - 440 K/uL | [facility] | | | | [facility] | [facility] - | | | | | LAB[facility]ATORY | + + + + + | MPV | 9.4 | fL | [facility] | | | | [facility] - | | | | | [facility] | + + + + + | % Neutrophils | 69.1 | 45.0 - 82.0 % | [facility] | | | | [facility] - | | | | | LAB[facility]ATORY | + + + + + | % Lymphocytes | 20.9 | 20.0 - 45.0 % | [facility] | | | | [facility] | | | | [facility] - | | | | | LAB[facility]ATORY | + + + + + | % Monocytes | 5.5 | 4.0 - 12.0 % | [facility] | | | | | [facility] | | | | [facility] - | | | | | LAB[facility]ATORY | + + + + + | % Eosinophils | 3.8 | 0.0 - 5.0 % | [facility] | | | | | [facility] | [facility] | [facility] - | | | | | LAB[facility]ATORY | + + + + + | % Basophils | 0.7 | 0.0 - 1.0 % | [facility] | | | | | [facility] | | | | [facility] - | | | | | LAB[facility]ATORY | + + + + + | Absolute Neutrophils | 4.60 | 1.80 - 8.50 K/uL | [facility] | | | | | [facility] | [facility] - | | | | | LAB[facility]ATORY | + + + + + | Absolute Lymphocytes | 1.40 | 0.60 - 3.20 K/uL | [facility] | | | | | [facility] | | | | [facility] - | | | | | LAB[facility]ATORY | + + + + + | Absolute Monocytes | 0.40 | 0.00 - 1.00 K/uL | [facility] | | | | | [facility] | | | | [facility] - | | | | | LAB[facility]ATORY | + + + + + | Absolute Eosinophils | 0.30 | 0.00 - 0.40 K/uL | [facility] | | | | | [facility] | | | | [facility] - | | | | | LAB[facility]ATORY | + + + + + | Absolute Basophils | 0.00 | 0.00 - 0.10 K/uL | [facility] | | | | | [facility] | | | | | CENTER - | | | | | LABORATORY | + + + + + + + | Specimen | + + | Blood | + + + + + + + | Performing | Address | City/State/Zipcode | Phone Number | | Organization | | | | + + + + + | [facility] | [address] | [place] | [phone] | | [facility] | | [address] | | | - LABORATORY | | | | + + + + + | [facility] | [address] | [place] | | | [facility] | | [address] | | | - LABORATORY | | | | + + + + + Sedimentation Rate (10/07/20177) + +-------+ + + | Component | Value | Ref Range | Performed At | + +-------+ + + | ESR | 5 | <15 mm/hr | [facility] | | | | | [facility] | | | | [facility] - | | | | | LABORATORY | + +-------+ + + + + | Specimen | + + | Blood | + + + + + + + | Performing | Address | City/State/Zipcode | Phone Number | | Organization | | | | + + + + + | [facility] | [address] | [place] | [phone] | | [facility] | | [address] | | | - LABORATORY | | | | + + + + + | [facility] | [address] | [place] | | | [facility] | | [address] | | | - LABORATORY | | | | + + + + + Culture, Blood (10/07/2017 1437)Only the most recent of 2 results within the time period is included. + + + + + | Component | Value | Ref Range | Performed At | + + + + + | Culture | No growth after 5 days | | [facility] | | | incubation. | | [facility] | | | | | CENTER - | | | | | LABORATORY | + + + + + + + | Specimen | + + | Blood - Peripheral | | Blood | + + + + + + + | Performing | Address | City/State/Zipcode | Phone Number | | Organization | | | | + + + + + | [facility] | [address] | [place] | [phone] | | [facility] | | [address] | | | - LABORATORY | | | | + + + + + | [facility] | [address] | [place] | | | [facility] | | [address] | | | - LABORATORY | | | | + + + + + PTT (10/07/20171436) + +-------+ + + | Component | Value | Ref Range | Performed At | + +-------+ + + | PTT | 29 | 22 - 36 seconds | [facility] | | | | | [facility] | | | | [facility] - | | | | | LABORATORY | + +-------+ + + + + | Specimen | + + | Blood | + + + + + + + | Performing | Address | City/State/Zipcode | Phone Number | | Organization | | | | + + + + + | [facility] | [address] | [place], [place] | [phone] | | [facility] | | [address] | | | - LABORATORY | | | | + + + + + | [facility] | [address] | [place], [place] | | | [facility] | | [address] | | | - LABORATORY | | | | + + + + + Protime INR (10/07/2017 1437) + + + + + | Component | Value | Ref Range | Performed At | + + + + + | Protime | 12.8 | 11.3 - 13.9 seconds | [facility] | | | | | [facility] | | | | | [facility] - | | | | | LABORATORY | + + + + + | INR | 0.97Comment: Usual Oral | 0.90 - 1.10 | [facility] | | | Anticoagulation | | [facility] | | | Range: 2.0 - | | CENTER - | | | 3.0High Level Oral | | LABORATORY | | | Anticoagulation Range: | | | | | 2.5 - 3.5 | | | + + + + + + + | Specimen | + + | Blood | + + + + + + + | Performing | Address | City/State/Zipcode | Phone Number | | Organization | | | | + + + + + | [facility] | [address] | [place] | [phone] | | [facility] | | [address] | | | - LABORATORY | | | | + + + + + | [facility] | [address] | [place] | | | [facility] | | [address] | | | - LABORATORY | | | | + + + + + C-Reactive Protein, High Sensitivity (10/07/2017 1437) + + + + + | Component | Value | Ref Range | Performed At | + + + + + | CRP, High Sensitive | 11.07 (H) | <=3.00 mg/L | [facility] | | | | | [facility] | | | | | CENTER - | | | | | LABORATORY | + + + + + + + | Specimen | + + | Blood | + + + + + + + | Performing | Address | City/State/Zipcode | Phone Number | | Organization | | | | + + + + + | [facility] | [address] | [place] | [phone] | | [facility] | | [address] | | | - LABORATORY | | | | + + + + + | [facility] | [address] | [place], [place] | | | [facility] | | [address] | | | - LABORATORY | | | | + + + + + Comprehensive Metabolic Panel (10/07/2017 1437) + + + + + | Component | Value | Ref Range | Performed At | + + + + + | NA | 135 (L) | 136 - 149 mmol/L | [facility] | | | | | [facility] | [facility] - | | | | | LABORATORY | + + + + + | K | 4.5 | 3.5 - 5.1 mmol/L | [facility] | | | | | [facility] | [facility] - | | | | | LABORATORY | + + + + + | CL | 102 | 98 - 109 mmol/L | [facility] | | | | | [facility] | [facility] | [facility] - | | | | | LABORATORY | + + + + + | CO2 | 28 | 24 - 31 mmol/L | [facility] | | | | | [facility] | | | | | C[facility] - | | | | | LABORATORY | + + + + + | ANION GAP | 5 | 3 - 16 mmol/L | [facility] | | | | | [facility] | | | | | C[facility] - | | | | | LABORATORY | + + + + + | GLUCOSE | 275 (H) | 70 - 109 mg/dL | [facility] | | | | | [facility] | | [facility] | | C[facility] - | | | | | LABORATORY | + + + + + | BUN | 11 | 7 - 18 mg/dL | [facility] | | | | | [facility] | | | | | CENTER - | | | | | LABORATORY | + + + + + | Creatinine, | 0.70 | 0.60 - 1.30 mg/dL | [facility]. | | Serum/Plasma | | | [facility] | | | | | CENTER - | | | | | LABORATORY | + + + + + | eGFR if not | >60Comment: GLOMERULAR | >=60 mL/min/1.73m2 | [facility] | | CZECH | FILTRATION | | [facility] | | | RATE,ESTIMATED mL/min | | CENTER - | | | /1.58a0Iicv than 60 | | LABORATORY | | | Chronic kidney | | | | | disease,if found over a | | | | | 3-month period.Less than | | | | | 15 Kidney | | | | | failureFor | | | | | Americans,multiply the | | | | | calculated GFR by 1.21. | | | | | | | | + + + + + | CALCIUM | 8.6 | 8.3 - 10.5 mg/dL | [facility] | | | | | [facility] | | | | [facility] - | | | | | LABORATORY | + + + + + | ALBUMIN | 4.1 | 3.2 - 5.0 g/dL | [facility] | | | | | [facility] | | | | [facility] - | | | | | LABORATORY | + + + + + | Bilirubin Total | 1.3 | 0.1 - 1.5 mg/dL | [facility] | | | | | [facility] | | | | [facility] - | | | | | LABORATORY | + + + + + | Total protein | 6.6 | 6.0 - 7.8 g/dL | [facility] | | | | | [facility] | | | | [facility] - | | | | | LABORATORY | + + + + + | AST | 17 | 10 - 42 U/L | [facility] | | | | | [facility] | | | | [facility] - | | | | | LABORATORY | + + + + + | ALT | 18 | 6 - 45 U/L | [facility] | | | | | [facility] | | | | [facility] - | | | | | LABORATORY | + + + + + | ALK PHOS | 61 | 40 - 110 U/L | [facility] | | | | | [facility] | | | | [facility] - | | | | | LABORATORY | + + + + + | GLOBULIN | 2.5 | 2.1 - 3.8 g/dL | [facility] | | | | | [facility] | | | | [facility] - | | | | | LABORATORY | + + + + + | Albumin/Globulin | 1.6 | 0.8 - 2.0 | [facility] | | ratio | | | [facility] | | | | [facility] - | | | | | LABORATORY | + + + + + | BUN/CREA | 15.7 | | [facility] | | | | | [facility] | | | | [facility] - | | | | | LABORATORY | + + + + + + + | Specimen | + + | Blood | + + + + + + + | Performing | Address | City/State/Zipcode | Phone Number | | Organization | | | | + + + + + | [facility] | [address] | [place] | [phone] | | [facility] | | [address] | | | - LABORATORY | | | | + + + + + | [facility] | [address] | [place], [place] | | | [facility] | | [address] | | | - LABORATORY | | | | + + + + + XR Foot Right 3 + Vw (10/07/2017 1427) + + + | Narrative | Performed At | + + + | XR Foot Right 3 + Vw 10/07/2017 2:24 PM HISTORY: Skin ulcer | [facility] | | region of right great toe. COMPARISON: None. FINDINGS: There | | | are no acute osseous abnormalities. There are mild degenerative | | | changes of the fifth PIP joint. A moderate to large spur is seen of | | | the inferior calcaneus. There is a small spur of the posterior | | | calcaneus. Mild dorsal spurring is visualized of the midfoot. Bone | | | mineralization is normal. Soft tissue structures are unremarkable. | | | IMPRESSION - No acute osseous findings. If there is high | | | suspicion for osteomyelitis, MRI can be considered. Dictated and | | | Signed by: Jonah Miller MD Electronically signed: 10/07/2017 2:27 | | | PM | | + + + + + | Procedure Note | + + | Soy, Rad Results In - 10/07/2017 1430 PDT XR Foot Right 3 + Vw 10/07/2017 2:24 PM | | | | HISTORY: Skin ulcer region of right great toe. | | | | COMPARISON: None. | | | | FINDINGS: | | There are no acute osseous abnormalities. There are mild degenerative changes of | | the fifth PIP joint. A moderate to large spur is seen of the inferior calcaneus. | | There is a small spur of the posterior calcaneus. Mild dorsal spurring is | | visualized of the midfoot. Bone mineralization is normal. Soft tissue structures | | are unremarkable. | | | | IMPRESSION - | | No acute osseous findings. | | | | If there is high suspicion for osteomyelitis, MRI can be considered. | | | | Dictated and Signed by: Jonah Miller MD | | Electronically signed: 10/07/2017 2:27 PM | + + + +---------+ + + | Performing | Address | City/State/Zipcode | Phone Number | | Organization | | | | + +---------+ + + | [facility] | | | | + +---------+ + + from Last 3 Months Insurance +--------+--------+ +------+-------+---------+ | Payer | Nikiai | Subscriber | Type | Phone | Address | | | t Plan | ID | | | | | | / | | | | | | | Group | | | | | +--------+--------+ +------+-------+---------+ | HOUGH | HOUGH | [id number] | PPO | | | | | ADD | | | | | | | CHOICE | | | | | | | FRST | | | | | | | HLTH | | | | | +--------+--------+ +------+-------+---------+ + +--------+ +--------+ + + | Guarantor Name | Accoun | Relation to | Date | Phone | Billing Address | | | t Type | Patient | of | | | | | | | | | | + +--------+ +--------+ + + | TYRELL BRUSH | Person | Self [birth year] | Home: | [id number] | | . | al/Fam | | 1975 | [phone] [address] [place] | | | luis alfredo | | | [phone] | [phone] | + +--------+ +--------+ + +
--- OUTSIDE RECORDS SUMMARY | ~2017-12-23 | XMS | Encounter Summary ---
Demographics + + + | Address | [address] [place] [address] | | | [place] [address] | + + + | Home Phone | | + + + | Preferred Language | Unknown | + + + | Marital Status | | + + + | Denominational Affiliation | Unknown | + + + | Race | Unknown | + + + | Ethnic Group | Unknown | + + + Author + + + | Author | [facility] | | | and [place] | + + + | Organization | [facility] | | | and [...] Team Providers + +------+ + | Care Ornamental Metal Erector Apprentice Name | Role | Phone | + +------+ + | Ryan Brown DO | PCP | | + +------+ + Reason for Referral Evaluate & Treat (Urgent) +--------+ + + + + + | Status | Reason | Specialty | Diagnoses / | Referred By | Referred To | | | | | Procedures | Contact | Contact | +--------+ + + + + + | Closed | Specialty | Podiatry | Diagnoses | [place], | [place], | | | Services | | Skin ulcer | Derian Arias MD | Eugene Brewer DPM | | | Required | | of left foot | [address] | | | | | with fat | [address] | [place] | | | | | layer | [place], | [place] | | | | | exposed | [place] [address] | [address] | | | | | ([facility]) | | Phone: | | | | | | | [phone] | +--------+ + + + + + Reason for Visit + + + | Reason | Comments | + + + | Skin Ulcer | | + + + Encounter Details +--------+ + + + + | Date | Type | Department | Care Team | Description | +--------+ + + + + | 10/07/ | Emergency | [facility] | Derian Orr, | Skin ulcer of left | | 2018 | | [facility] | MD [address] | foot with fat layer | | | | CENTER [address] | [place], [place] | exposed (HCC) | | | | [place], [place] | [address] | (Primary Dx); | | | | [address] | | Diabetic ulcer of | | | | [phone] | | toe of left foot | | | | | | associated with type | | | | | | 2 diabetes | | | | | | mellitus, with fat | | | | | | layer exposed (HCC); | | | | | | Elevated blood | | | | | | pressure reading | +--------+ + + + + Social [...] + + + | Blood Pressure | 114/75 | 10/07/2017 1600 PDT | + + + + | Pulse | 65 | 10/07/2017 1600 PDT | + + + + | Temperature | 36.2 C (97.1 F) | 10/07/2017 114 PDT | + + + + | Respiratory Rate | 16 | 10/07/2017 114 PDT | + + + + | Oxygen Saturation | 100% | 10/07/2017 1600 PDT | + + + + | Inhaled Oxygen | - | - | | Concentration | | | + + + + | Weight | 127 kg (280 lb) | 10/07/2017 114 PDT | + + + + | Height | 190.5 cm (6' 3") | 10/07/2017 1141 PDT | + + + + | Body Mass Index | 35 | 10/07/20171140 PDT | + + + + in this encounter Medications at Time of Discharge + + + +---------+ + + | Medication | Sig. | Disp. | Refills | Start | End Date | | | | | | Date | | + + + +---------+ + + | | Take 1 tablet by | 15 | 0 | 10/08/19 | | | HYDROcodone-acetamin | mouth every 6 hours | tablet | | 18 | | | ophen (NORCO) 5-325 | as needed for Pain. | | | | | | mg per tablet | | | | | | + + + +---------+ + + | insulin aspart | Inject under the | | | | | | (NOVOLOG PENFILL) | skin 3 times daily | | | | | | 100 units/mL | (before meals). | | | | | | injection cartridge | | | | | | + + + +---------+ + + | insulin glargine | Inject 60 Units | | | | | | (LANTUS) 100 | under the skin | | | | | | units/mL injection | nightly. | | | | | | (vial) | | | | | | + + + +---------+ + + | metFORMIN | Take 1,000 mg by | | | | | | (GLUCOPHAGE) 1000 MG | mouth 2 times daily | | | | | | tablet | (with breakfast & | | | | | | | dinner). | | | | | + + + +---------+ + + | clindamycin | Take 1 capsule by | 42 | 0 | 10/08/19 | | | (CLEOCIN) 300 MG | mouth 3 times daily | capsule | | 18 | 8 | | capsule | for 14 days. | | | | | + + + +---------+ + + | | take 1 tablet by | | 0 | 08/20/19 | | | HYDROcodone-acetamin | mouth every 4 hours | | | 18 | 8 | | ophen (NORCO) | if needed for pain | | | | | | 7.5-325 mg per | NOT TO EXCEED 6 | | | | | | tablet | TABLETS IN 24 HOURS | | | | | + + + +---------+ + + | sodium | Apply 15 mLs | 473 mL | 0 | 10/08/19 | | | hypochlorite | topically 2 times | | | 18 | 8 | | (DAKINS) 0.25 % SOLN | daily for 10 days. | | | | | + + + +---------+ + + as of this encounter Plan of Treatment + +--------+ + + | Name | Priori | Associated Diagnoses | Order Schedule | | | ty | | | + +--------+ + + | [facility] | Routin | Skin ulcer of left | Ordered: 10/07/2017 | | AMB Referral | e | foot with fat layer | | | | | exposed (HCC) | | + +--------+ + + as of this encounter Procedures + +--------+ + [...] + + + in this encounter Results Culture, Blood (10/07/20171436) + + + + + | Component | Value | Ref Range | Performed At | + + + + + | Culture | No growth after 5 days | | [facility] | | | incubation. | | [facility] | | | | | [place] - | | | | | LABORATORY | + + + + + + + | Specimen | + + | Blood - Peripheral | | Blood | + + + + + + + | Performing | Address | City/State/Zipcode | Phone Number | | Organization | | | | + + + + + | [facility] | [address] | [place], [place] | [phone] | | [facility] | | [address] | | | - LABORATORY | | | | + + + + + | [facility] | [address] | [place], [place] | | | [facility] | | [address] | | | - LABORATORY | | | | + + + + + Culture, Blood (10/07/2017 1437) + + + + + | Component | Value | Ref Range | Performed At | + + + + + | Culture | No growth after 5 days | | [facility] | | | incubation. | | [facility] | | | | C[facility] - | | | | | LABORATORY | + + + + + + + | Specimen | + + | Blood - Line | + + + + + + + | Performing | Address | City/State/Zipcode | Phone Number | | Organization | | | | + + + + + | [facility] | [address] | [place] | [phone] | | [facility] | | [address] | | | - LABORATORY | | | | + + + + + | [facility] | [address] | [place] | | | [facility] | | [address] | | | - LABORATORY | | | | + + + + + C-Reactive Protein, High Sensitivity (10/07/2017 1437) + + + + + | Component | Value | Ref Range | Performed At | + + + + + | CRP, High Sensitive | 11.07 (H) | <=3.00 mg/L | [facility] | | | | | [facility] | | | | | CENTER [...] + | [facility] | [address] | [place] | [phone] | | [facility] | | [address] | | | - LABORATORY | | | | + + + + + | [facility] | [address] | [place] | | | [facility] | | [address] | | | - LABORATORY | | | | + + + + + Sedimentation Rate (10/07/2017 1437) + +-------+ + + | Component | Value | Ref Range | Performed At | + +-------+ + + | ESR | 5 | <15 mm/hr | [facility] | | | | [...] + | [facility] | [address] | [place] | [phone] | | [facility] | | [address] | | | - LABORATORY | | | | + + + + + | [facility] | [address] | [place] | | | [facility] | | [address] | | | - LABORATORY | | | | + + + + + Protime INR (10/07/2017 1437) + + + + + | Component | Value | Ref Range | Performed At | + + + + + | Protime | 12.8 | 11.3 - 13.9 seconds | [facility] | | | | | [facility] | | | | | CENTER - | | | | | LABORATORY | + + + + + | INR | 0.97Comment: Usual Oral | 0.90 - 1.10 | [facility] | | | Anticoagulation | | [facility] | | | Range: 2.0 - | [...] + | [facility] | [address] | [place] | [phone] | | [facility] | | [address] | | | - LABORATORY | | | | + + + + + | [facility] | [address] | [place] | | | [facility] | | [address] | | | - LABORATORY | | | | + + + + + PTT (10/07/20171436) + +-------+ + + | Component | Value | Ref Range | Performed At | + +-------+ + + | PTT | 29 | 22 - 36 seconds | [facility] | | | | | [facility] | | | | | CENTER - | | | | | LABORATORY | + +-------+ + + + + | Specimen | + + | Blood | + + + + + + + | Performing | Address | City/State/Zipcode | Phone Number | | Organization | | | | + + + + + | [facility] | [address] | [place], [place] | [phone] | | [facility] | | [address] | | | - LABORATORY | | | | + + + + + | [facility] | [address] | [place], [place] | | | [facility] | | [address] | | | - LABORATORY | | [...] 0.70 | 0.60 - 1.30 mg/dL | [facility] | | Serum/Plasma | | | [facility] | | | | | CENTER - | | | | | LABORATORY | + + + + + | eGFR if not | >60Comment: GLOMERULAR | >=60 mL/min/1.73m2 | [facility] | | COLOMBIAN | FILTRATION | | [facility] | | | RATE,ESTIMATED mL/min | | CENTER - | | | /1.81b8Mpps than 60 | | LABORATORY | | [...] 8.6 | 8.3 - 10.5 mg/dL | [facility] | | | | | [facility] | | | | | CENTER [...] + | BUN/CREA | 15.7 | | [facility] | | | | | [facility] | | | | | CENTER [...] + | [facility] | [address] | [place] | [phone] | | [facility] | | [address] | | | - LABORATORY | | | | + + + + + | [facility] | [address] | [place] | | | [facility] | | [address] | | | - LABORATORY | | | | + + + + + CBC w/ Auto Differential (10/07/2017 1437) + + + + + | Component | Value | Ref Range | Performed At | + + + + + | WBC | 6.7 | 4.0 - 11.0 K/uL | [facility] | | | | | [facility] | | | | | CENTER [...] [facility] | | | | | [facility] | | | | | CENTER - | | | | | LABORATORY | + + + + + + + | Specimen | + + | Blood | + + + + + + + | Performing | Address | City/State/Zipcode | Phone Number | | Organization | | | | + + + + + | [facility] | [address] | [place] | [phone] | | [facility] | | [address] | | | - LABORATORY | | | | + + + + + | [facility] | [address] | [place], [place] | | | [facility] | | [address] | | | - LABORATORY | | [...] | | | + +---------+ + + in this encounter Visit Diagnoses + + | Diagnosis | + + | Skin ulcer of left foot with fat layer exposed (HCC) - Primary | + + | Diabetic ulcer of toe of left foot associated with type 2 diabetes mellitus, with fat | | layer exposed (HCC) | + + | Elevated blood pressure reading | + + | Elevated blood pressure reading without diagnosis of hypertension | + + Administered Medications + +---------+ +--------+ +------+ | Medication Order | MAR | Action | Dose | Rate | Site | | | Action | Date | | | | + +---------+ +--------+ +------+ | clindamycin in dextrose | New Bag | | 900 mg | 50 mL/hr | | | (CLEOCIN) IVPB 900 mg 900 mg, | | 8 16:32 | | | | | Intravenous, Administer over 60 | | PDT | | | | | Minutes, ONCE, 10/07/17 at | | | | | | | 1615, For 1 dose, Indications: | | | | | | | Skin and Soft Tissue Abscess | | | | | | + +---------+ +--------+ +------+ +---+---+ | | | +---+---+ + +-------+ +---------+---+---+ | HYDROcodone-acetaminophen | Given | | 2 | | | | (NORCO) 5-325 mg per tablet 2 | | 8 16:32 | tablets | | | | tablet 2 tablet, Oral, ONCE, Wed | | PDT | | | | | 10/07/17 at 1630, For 1 dose | | | | | | + +-------+ +---------+---+---+ +---+---+ | | | +---+---+ + +---------+ +--------+-------+---+ | sodium chloride 0.9% (NS) bolus | New Bag | | 1,000 | 1000 | | | 1,000 mL 1,000 mL, Intravenous, | | 8 14:37 | mLs | mL/hr | | | Administer over 1 Hours, ONCE, | | PDT | | | | | 10/07/17 at 1410, For 1 dose | | | | | | + +---------+ +--------+-------+---+ +---+---+ | | | +---+---+ in this encounter
--- OUTSIDE RECORDS SUMMARY | ~2017-12-23 | XMS | Clinical Summary ---
Demographics + + + | Address | [address] [place] [address] | | | [place] [address] | + + + | Home Phone | | + + + | Preferred Language | Unknown | + + + | Marital Status | | + + + | Amish Affiliation | Unknown | + + + | Race | Unknown | + + + | Ethnic Group | Unknown | + + + Author + + + | Author | [facility] | | | and [place] | + + + | Organization | [facility] | | | and [...] Team Providers + +------+ + | Care Patternmaker Apprentice Wood Name | Role | Phone | + [...] (H) | 70 - 109 mg/dL | [facility] | | | | | [facility] [...] + | [facility] | [address] | [place], [place] | [phone] | | [facility] | | [address] | | | - LABORATORY | | | | + + + + + | [facility] | [address] | [place], [place] | | | [facility] | | [address] | | | - LABORATORY | | [...] | | | |Electronically Signed by: DO Winsome Hope date/time: 018 8:11 | + + [...] [facility] | | | | | [facility] | | | | | CENTER - | | | | | LABORATORY | + + + + + + + | Specimen | + + | Blood | + + + + + + + | Performing | Address | City/State/Zipcode | Phone Number | | Organization | | | | + + + + + | [facility] | [address] | [place] | [phone] | | [facility] | | [address] | | | - LABORATORY | | | | + + + + + | [facility] | [address] | [place] | | | [facility] | | [address] | | | - LABORATORY | | [...] + | [facility] | [address] | [place] | [phone] | | [facility] | | [address] | | | - LABORATORY | | | | + + + + + | [facility] | [address] | [place] | | | [facility] | | [address] | | | - LABORATORY | | [...] ST. | | | incubation. | | [facility] | | | | | CENTER - [...] + | [facility] | [address] | [place] | [phone] | | [facility] | | [address] | | | - LABORATORY | | | | + + + + + | [facility] | [address] | [place] | | | [facility] | | [address] | | | - LABORATORY | | [...] + | [facility] | [address] | [place], [place] | [phone] | | [facility] | | [address] | | | - LABORATORY | | | | + + + + + | [facility] | [address] | [place], [place] | | | [facility] | | [address] | | | - LABORATORY | | [...] + | [facility] | [address] | [place] | [phone] | | [facility] | | [address] | | | - LABORATORY | | | | + + + + + | [facility] | [address] | [place] | | | [facility] | | [address] | | | - LABORATORY | | | | + + + + + C-Reactive Protein, High Sensitivity (10/07/2017 1437) + + + + + | Component | Value | Ref Range | Performed At | + + + + + | CRP, High Sensitive | 11.07 (H) | <=3.00 mg/L | [facility] | | | | | [facility] | | | | | CENTER - | | | | | LABORATORY | + + + + + + + | Specimen | + + | Blood | + + + + + + + | Performing | Address | City/State/Zipcode | Phone Number | | Organization | | | | + + + + + | [facility] | [address] | [place] | [phone] | | [facility] | | [address] | | | - LABORATORY | | | | + + + + + | [facility] | [address] | [place], [place] | | | [facility] | | [address] | | | - LABORATORY | | [...] [facility] | | | | | [facility] | | | | | CENTER - | | | | | LABORATORY | + + + + + | ANION GAP | 5 | 3 - 16 mmol/L | [facility] | | | | | [facility] | | | | | CENTER - | | | | | LABORATORY | + + + + + | GLUCOSE | 275 (H) | 70 - 109 mg/dL | [facility] | | | | | [facility] | | | | | CENTER - | | | | | LABORATORY | + + + + + | BUN | 11 | 7 - 18 mg/dL | [facility] | | | | | [facility] | | | | | CENTER - | | | | | LABORATORY | + + + + + | Creatinine, | 0.70 | 0.60 - 1.30 mg/dL | [facility]. | | Serum/Plasma | | | [facility] | | | | | CENTER - | | | | | LABORATORY | + + + + + | eGFR if not | >60Comment: GLOMERULAR | >=60 mL/min/1.73m2 | [facility] | | [place] | FILTRATION | | [facility] | | | RATE,ESTIMATED mL/min | | CENTER - | | | /1.87k9Yefv than 60 | | LABORATORY | | [...] 8.6 | 8.3 - 10.5 mg/dL | [facility] | | | | | [facility] [...] + | [facility] | [address] | [place] | [phone] | | [facility] | | [id number] | | | - LABORATORY | | | | + + + + + | [facility] | [address] | [place], [place] | | | [facility] | | [id number] | | | - LABORATORY | | [...] +--------+--------+ +------+-------+---------+ | HOUGH | HOUGH | [id number] | PPO | | | | | [...] | Self [birth year] | Home: | [id number] | | . | al/Fam | | 1975 | [phone] | [address] [place] | | | luis alfredo | | | [phone] | + +--------+ +--------+ + +
--- OUTSIDE RECORDS SUMMARY | ~2017-12-23 | XMS | Encounter Summary ---
Demographics + + + | Address | [address] [place] [address] | | | [place] [address] | + + + | Home Phone | | + + + | Preferred Language | Unknown | + + + | Marital Status | | + + + | Restoration Affiliation | Unknown | + + + | Race | Unknown | + + + | Ethnic Group | Unknown | + + + Author + + + | Author | [facility] | | | and [place] | + + + | Organization | [facility] | | | [...] Team Providers + +------+ + | Care Associate Entertainment Editor Name | Role | Phone | + [...] [place] | | | | | | [phone] | | | | | | [phone] | | | +--------+ + + + [...]
--- OUTSIDE RECORDS SUMMARY | ~2017-12-23 | XMS | Encounter Summary ---
Demographics + + + | Address | [address] [place] [address] | | | [place] [address] | + + + | Home Phone | | + + + | Preferred Language | Unknown | + + + | Marital Status | | + + + | Restorationist Affiliation | Unknown | + + + | Race | Unknown | + + + | Ethnic Group | Unknown | + + + Author + + + | Author | [facility] | | | and [place] | + + + | Organization | [facility] | | | and [...] Team Providers + +------+ + | Care Epic Professional Name | Role | Phone | + [...] [place] | | | | | | [address] | | | | | | [phone] | | | +--------+ + + + [...]
--- OUTSIDE RECORDS SUMMARY | ~2017-12-23 | XMS | Encounter Summary ---
Demographics + + + | Address | [address] [place] [address] | | | [place] [address] | + + + | Home Phone | | + + + | Preferred Language | Unknown | + + + | Marital Status | | + + + | Mandaen Affiliation | Unknown | + + + | Race | Unknown | + + + | Ethnic Group | Unknown | + + + Author + + + | Author | [facility] | | | and [place] | + + + | Organization | [facility] | | | [...] Team Providers + +------+ + | Care New Vehicle Sales Consultant Name | Role | Phone | + +------+ + | Ryan Brown DO | PCP | | + +------+ + Encounter Details +--------+ + + + + | Date | Type | Department | Care Team | Description | +--------+ + + + + | 10/14/ | Anesthesia | [facility] | Scooby Jensen MD | | | 2018 | Event | [facility] | [address] | | | | | [address] | [place] | | | | | [place] | [address] | | | | | [address] | | | | | | [phone] | | | +--------+ + + + + Anesthesia Record + + + + + | Procedure Name | Responsible | Anesthesia Start | Anesthesia Stop Time | | | Anesthesiologist | Time | | + + + + + | Right Big Toe Wound | | | | | Debridement w/ | | | | | Removal of All | | | | | Nonviable Tissue w/ | | | | | Percutaneous | | | | | Achilles Tendon | | | | | Lengthening (Right | | | | | Ankle) | | | | + + + + + + + | No events on file. | + + +------+ | Meds | +------+ + + + No medications | on file. | + + + + + | No agents on file. | + + + + | No blood administrations on file. | + + + + | No LDAs on file. | + + in this encounter Social History + +-------+ +--------+------+ | Tobacco [...]
--- OUTSIDE RECORDS SUMMARY | ~2017-12-23 | XMS | Encounter Summary ---
Demographics + + + | Address | [address] [place] [address] | | | [place] [address] | + + + | Home Phone | | + + + | Preferred Language | Unknown | + + + | Marital Status | | + + + | Jainism Affiliation | Unknown | + + + | Race | Unknown | + + + | Ethnic Group | Unknown | + + + Author + + + | Author | [facility] | | | and [place] | + + + | Organization | [facility] | | | [...] Team Providers + +------+ + | Care Blueprint Tracer Name | Role | Phone | + [...] +--------+--------+ + + + + Encounter Details +--------+ + + + + | Date | Type | Department | Care Team | Description | +--------+ + + + + | 10/21/ | Hospital | [facility] | Kaela Gonzales, | Laceration of right | | 2018 | Encounter | MED CTR [facility] OP | DPM [address] | great toe without | | | | [address] | [place], [place] | foreign body present | | | | [place], [place] | [address] | or damage to nail, | | | | [address] | [phone] | sequela (Primary Dx) | | | | [phone] | | | +--------+ + + + + Social History + + [...] unusual that concerns you Date Last Reviewed: 12/16/201419995650-3275 [employer]. [address] [place] [address]. All righ ts reserved. This information is [...] heals. Yourhealthcare provider will tell you w drew you can start wearing your own shoe again. Date Last Reviewed: 01/04/201519999510-9189 [employer]. [address] [place] [address], [place] [address]. All righ ts reserved. This information is [...] tablet by | 15 | 0 | 07/18/20 | | | HYDROcodone-acetamin | mouth every [...] [facility] | | | | | CENTER - | | | | | LABORATORY | + +---------+ + + + + | Specimen | + + | Blood | + + + + + + + | Performing | Address | City/State/Zipcode | Phone Number | | Organization | | | | + + + + + | [facility] | [address] | [place] | [phone] | | [facility] | | [address] | | | - LABORATORY | | | | + + + + + | [facility] | [address] | [place] | | | [facility] | | [address] | | | - LABORATORY | | | | + + + + + POC Glucose (10/21/20171002) + +---------+ + + | Component | Value | Ref Range | Performed At | + +---------+ + + | Glucose, POC | 419 (H) | 70 - 109 mg/dL | [facility] | | | | | [facility] | | | | | CENTER - | | | | | LABORATORY | + +---------+ + + + + | Specimen | + + | Blood | + + + + + + + | Performing | Address | City/State/Zipcode | Phone Number | | Organization | | | | + + + + + | [facility] | [address] | [place], [place] | [phone] | | [facility] | | [address] | | | - LABORATORY | | | | + + + + + | [facility] | [address] | [place], [place] | | | [facility] | | [address] | | | - LABORATORY | | | | + + + + + POC Glucose (10/21/2017853) + +---------+ + + | Component | Value | Ref Range | Performed At | + +---------+ + + | Glucose, POC | 338 (H) | 70 - 109 mg/dL | [facility] | | | | | [facility] [...] + | [facility] | [address] | [place], [place] | [phone] | | [facility] | | [address] | | | - LABORATORY | | | | + + + + + | [facility] | [address] | [place], [place] | | | [facility] | | [address] | | | - LABORATORY | | [...] + | [facility] | [address] | [place] | [phone] | | [facility] | | [address] | | | - LABORATORY | | | | + + + + + | [facility] | [address] | [place], [place] | | | [facility] | | [address] | | | - LABORATORY | | | | + + + + + in this encounter Visit Diagnoses + + | Diagnosis | + + | Laceration of right great toe without foreign body present or damage to nail, sequela | | - Primary | + + Admitting Diagnoses + + | Diagnosis | [...] ONCE PRN, Wheezing, | | | Starting 10/21/17 at 0827, For | | | 1 [...] glucose < 50, | | | Starting 10/21/17 at 0635, | | | Repeat in [...] if SBP <90., Starting | | | 10/21/17 at 0827, Hold if HR > | [...] | | | hours as needed, Starting Wed | | | | | | | [...] DBP > 100, Starting | | | Thu10/21/17 at 0827, Hold if HR < | [...] PDT | | | | +---------+ +---+---+---+ + +---+ | | | + +---+ [...]
--- OUTSIDE RECORDS SUMMARY | ~2017-12-23 | XMS | Clinical Summary ---
Demographics + + + | Address | [address] | | | [place] [address] | + + + | Home Phone | | + + + | Preferred Language | Unknown | + + + | Marital Status | Single | + + + | Faith Affiliation | Unknown | + + + | Race | Unknown | + + + | Ethnic Group | Unknown | + + + Author + + + | Author | [facility] [employer] [facility] [facility] | + + + | Organization | [facility] | + + + | Address | Unknown | + + + | Phone | Unavailable | + + + Support + + +---------+ + | Name | Relationship | Address | Phone | + + +---------+ + | Fanny Cano | ECON | Unknown | | + + +---------+ + Care Team Providers + +------+ + | Care Marketing Information Coordinator Name | Role | Phone | + [...] +------+-------+ + | MEDICAID | [place] | [id number] | | | [address] | | | N | | | | [place] | | | [place] | | | | [address] | | | 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
--- OUTSIDE RECORDS SUMMARY | ~2017-12-23 | XMS | Clinical Summary ---
Demographics + + + | Address | [address] | | | [place] [address] | + + + | Home Phone | | + + + | Preferred Language | Unknown | + + + | Marital Status | Single | + + + | Orthodox Affiliation | Unknown | + + + | Race | Unknown | + + + | Ethnic Group | Unknown | + + + Author + + + | Author | [facility] [employer] [facility] | + + + | Organization | [facility] | + + + | Address | Unknown | + + + | Phone | Unavailable | + + + Support + + +---------+ + | Name | Relationship | Address | Phone | + + +---------+ + | Fanny Cano | ECON | Unknown | | + + +---------+ + Care Team Providers + +------+ + | Care Cementer Machine Applicator Name | Role | Phone | + [...] +------+-------+ + | MEDICAID | [place] | [id number] | | | [address] | | | N | | | | [place] | | | [place] | | | | [address] | | | 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
--- OUTSIDE RECORDS SUMMARY | ~2017-12-23 | XMS | Clinical Summary ---
Demographics + + + | Address | [address] | | | [place] [address] | + + + | Home Phone | | + + + | Preferred Language | Unknown | + + + | Marital Status | | + + + | Episcopalian Affiliation | UNK | + + + [...] Team Providers + +------+ + | Care Piledriver Carpenter Name | Role | Phone | + +------+ + | No Pcp Per Patient | PP | Unavailable | + +------+ + Source Comments JULIENNE is fully live on both [facility] Ambulatory and [facility] InPatient.[facility] Allergies + + + + + [...] | 3/20 | | e | | [place] | two times daily. Use | | [...] (Flu) | | | | | vaccination (#1) | 8 | | | + [...] | Self | [birth year] | Home: | [address] | | | jeannie/Nick | | 1975 | [phone] | [place] | | | [place] | | | [phone] | [phone] | + +--------+ +--------+ + +"
--- OUTSIDE RECORDS SUMMARY | ~2017-12-23 | XMS | Clinical Summary ---
Demographics + + + | Address | [address] | | | [place] [address] | + + + | Home Phone | | + + + | Preferred Language | Unknown | + + + | Marital Status | Single | + + + | Voodoo Affiliation | Unknown | + + + | Race | Unknown | + + + | Ethnic Group | Unknown | + + + Author + + + | Author | [facility] [employer] [facility] | + + + | Organization | [facility] | + + + | Address | Unknown | + + + | Phone | Unavailable | + + + Support + + +---------+ + | Name | Relationship | Address | Phone | + + +---------+ + | Fanny Cano | ECON | Unknown | | + + +---------+ + Care Team Providers + +------+ + | Care Client Experience Consultant Name | Role | Phone | [...] +------+-------+ + | MEDICAID | [place] | [id number] | | | [address] | | | N | | | | [place] | | | [place] | | | | [address] | | | 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
--- OUTSIDE RECORDS SUMMARY | ~2017-12-23 | XMS | Clinical Summary ---
Demographics + + + | Address | [address] [place] [address] | | | [place] [address] | + + + | Home Phone | | + + + | Preferred Language | Unknown | + + + | Marital Status | | + + + | Worship Affiliation | Unknown | + + + | Race | Unknown | + + + | Ethnic Group | Unknown | + + + Author + + + | Author | [facility] | | | and [place] | + + + | Organization | [facility] | | | [...] Team Providers + +------+ + | Care Director Of Direct Marketing Name | Role | Phone | + [...] (H) | 70 - 109 mg/dL | [facility] | | | | | B[facility] [...] + | [facility] | [address] | [place], [place] | [phone] | | [facility] | | [address] | | | - LABORATORY | | | | + + + + + | [facility] | [address] | [place], [place] | | | [facility] | | [address] | | | - LABORATORY | | [...] [facility] | | | | | [facility] | | | | | CENTER [...] + | [facility] | [address] | [place] | [phone] | | [facility] | | [address] | | | - LABORATORY | | | | + + + + + | [facility] | [address] | [place] | | | [facility] | | [address] | | | - LABORATORY | | [...] + | [facility] | [address] | [place] | [phone] | | [facility] | | [address] | | | - LABORATORY | | | | + + + + + | [facility] | [address] | [place] | | | [facility] | | [address] | | | - LABORATORY | | [...] ST. | | | incubation. | | [facility] | | | | | CENTER [...] + | [facility] | [address] | [place] | [phone] | | [facility] | | [address] | | | - LABORATORY | | | | + + + + + | [facility] | [address] | [place] | | | [facility] | | [address] | | | - LABORATORY | | [...] + | [facility] | [address] | [place], [place] | [phone] | | [facility] | | [address] | | | - LABORATORY | | | | + + + + + | [facility] | [address] | [place], [place] | | | [facility] | | [address] | | | - LABORATORY | | [...] + | [facility] | [address] | [place] | [phone] | | [facility] | | [address] | | | - LABORATORY | | | | + + + + + | [facility] | [address] | [place] | | | [facility] | | [address] | | | - LABORATORY | | | | + + + + + C-Reactive Protein, High Sensitivity (10/07/2017 1437) + + + + + | Component | Value | Ref Range | Performed At | + + + + + | CRP, High Sensitive | 11.07 (H) | <=3.00 mg/L | [facility] | | | | | [facility] | | | | | CENTER [...] + | [facility] | [address] | [place] | [phone] | | [facility] | | [address] | | | - LABORATORY | | | | + + + + + | [facility] | [address] | [place], [place] | | | [facility] | | [address] | | | - LABORATORY | | [...] [facility] | | | | | [facility] | | | | | CENTER - | | | | | LABORATORY | + + + + + | ANION GAP | 5 | 3 - 16 mmol/L | [facility] | | | | | [facility] | | | | | CENTER - | | | | | LABORATORY | + + + + + | GLUCOSE | 275 (H) | 70 - 109 mg/dL | [facility] | | | | | [facility] | | | | | CENTER - | | | | | LABORATORY | + + + + + | BUN | 11 | 7 - 18 mg/dL | [facility] | | | | | [facility] | | | | | CENTER - | | | | | LABORATORY | + + + + + | Creatinine, | 0.70 | 0.60 - 1.30 mg/dL | [facility]. | | Serum/Plasma | | | [facility] | | | | | CENTER - | | | | | LABORATORY | + + + + + | eGFR if not | >60Comment: GLOMERULAR | >=60 mL/min/1.73m2 | [facility] | | LITHUANIAN | FILTRATION | | [facility] | | | RATE,ESTIMATED mL/min | | CENTER - | | | /1.90f9Phhw than 60 | | LABORATORY | | [...] 8.6 | 8.3 - 10.5 mg/dL | [facility] | | | | | [facility] [...] + | [facility] | [address] | [place] | [phone] | | [facility] | | [address] | | | - LABORATORY | | | | + + + + + | [facility] | [address] | [place], [place] | | | [facility] | | [address] | | | - LABORATORY | | [...] +--------+--------+ +------+-------+---------+ | HOUGH | HOUGH | [id number] | PPO | | | | | [...] | Self | [birth year] | Home: | [address] | | . | al/Fam | | 1975 | [phone] | [place] | | | [place] | | | [phone] | [phone] | + +--------+ +--------+ + +
--- OUTSIDE RECORDS SUMMARY | ~2017-12-23 | XMS | Clinical Summary ---
Demographics + + + | Address | [address] | | | [place] [address] | + + + | Home Phone | | + + + | Preferred Language | Unknown | + + + | Marital Status | | + + + | Sikhism Affiliation | UNK | + + + [...] Providers + +------+ + | Care Supervisor Steel Division Name | Role | Phone | + +------+ + | No Pcp Per Patient | PP | Unavailable | + +------+ + Source Comments JULIENNE is fully live on both [facility] Amb[facility] and [facility] InPatient.[facility] Allergies + + + + + [...] | 3/20 | | e | | [place] | two times daily. Use | | [...] | Self | [birth year] | Home: | [address] | | | jeannie/Nick | | 1975 | [phone] | [place] | | | [place] | | | [phone] | [phone] | + +--------+ +--------+ + +"
--- OUTSIDE RECORDS SUMMARY | ~2017-12-23 | XMS | Encounter Summary ---
Demographics + + + | Address | [address] [place] [address] | | | [place] [address] | + + + | Home Phone | | + + + | Preferred Language | Unknown | + + + | Marital Status | | + + + | Worship Affiliation | Unknown | + + + | Race | Unknown | + + + | Ethnic Group | Unknown | + + + Author + + + | Author | [facility] | | | and [place] | + + + | Organization | [facility] | | | and [...] Team Providers + +------+ + | Care Transcription Typist Name | Role | Phone | + [...] + + | 10/21/ | [facility] | [facility] | Kaela Gonzales, | Right Big Toe Wound | | 2018 | | MED CTR OR INTRA OP | DPM [address] | Debridement w/ | | | | [address] | [place], [place] | Removal of All | | | | [place], [place] | [address] | Nonviable Tissue | | | | [address] | [phone] | | | | | [phone] | | | +--------+---------+ + + + [...] unusual that concerns you Date Last Reviewed: 12/16/201419993769-0303 [employer]. [address] [place] [address]. All righ ts reserved. This information is [...] your own shoe again. Date Last Reviewed: 01/04/201519996750-6521 [employer]. [address] [place] [address], [place] [address]. All righ ts reserved. This information is [...] [facility] | | | | | [facility] | | | | | CENTER - | | | | | LABORATORY | + +---------+ + + + + | Specimen | + + | Blood | + + + + + + + | Performing | Address | City/State/Zipcode | Phone Number | | Organization | | | | + + + + + | [facility] | [address] | [place] | [phone] | | [facility] | | [address] | | | - LABORATORY | | | | + + + + + | [facility] | [address] | [place] | | | [facility] | | [address] | | | - LABORATORY | | [...] + | [facility] | [address] | [place] | [phone] | | [facility] | | [address] | | | - LABORATORY | | | | + + + + + | [facility] | [address] | [place] | | | [facility] | | [address] | | | - LABORATORY | | | | + + + + + POC Glucose (10/21/201754) + +---------+ + + | Component | Value | Ref Range | Performed At | + +---------+ + + | Glucose, POC | 338 (H) | 70 - 109 mg/dL | [facility]. | | | | | [facility] | | | | | CENTER - | | | | | LABORATORY | + +---------+ + + + + | Specimen | + + | Blood | + + + + + + + | Performing | Address | City/State/Zipcode | Phone Number | | Organization | | | | + + + + + | [facility] | [address] | [place], [place] | [phone] | | [facility] | | [address] | | | - LABORATORY | | | | + + + + + | [facility] | [address] | [place], [place] | | | [facility] | | [address] | | | - LABORATORY | | [...] + | [facility] | [address] | [place], [place] | [phone] | | [facility] | | [address] | | | - LABORATORY | | | | + + + + + | [facility] | [address] | [place], [place] | | | [facility] | | [address] | | | - LABORATORY | | [...]
--- OUTSIDE RECORDS SUMMARY | ~2017-12-23 | XMS | Encounter Summary ---
Demographics + + + | Address | [address] [place] [address] | | | [place] [address] | + + + | Home Phone | | + + + | Preferred Language | Unknown | + + + | Marital Status | | + + + | Adventism Affiliation | Unknown | + + + | Race | Unknown | + + + | Ethnic Group | Unknown | + + + Author + + + | Author | [facility] | | | and [place] | + + + | Organization | [facility] | | | [...] Team Providers + +------+ + | Care Neckties Painter Name | Role | Phone | + [...] + + + + | 10/21/ | [facility] | [facility] Lisa Lugo | | | 2018 | Event | [facility] OP | DO Sridhar [address] | | | | | [address] | [facility] | | | | | [place] | [place] [address] | | | | | [address] | [phone] | | | | | [phone] | | | +--------+ + + + + Anesthesia Record + + + + + | Procedure Name | Responsible | Anesthesia Start | Anesthesia Stop Time | | | Anesthesiologist | Time | | + + + + + | Right Big Toe Wound | Lisa Waller | 10/21/17 0756 | 10/21/17 0835 | | Debridement w/ | DO Parish | | | | Removal of All | | | | | Nonviable Tissue | | | | | (Right Foot) | | | | + + + + + +----+---+ + + | Da | T | Event | Comment | | te | i | | | | | m | | | | | e | | | +----+---+ + + | 08 | 0 | An Checkout | Pre-use anesthesia machine/equipment checkout. | | /0 | 7 | | | | 1/ | 3 | | | | 20 | 3 | | | | 18 | | | | +----+---+ + + | | 0 | Pre-Procedu | | | | 7 | ral Timeout | | | | 3 | Completed | | | | 3 | | | +----+---+ + + | | 0 | An Start | | | | 7 | Data | | | | 3 | | | | | 3 | | | +----+---+ + + | | 0 | Block Start | | | | 7 | | | | | 3 | | | | | 3 | | | +----+---+ + + | | 0 | AN Block | | | | 7 | End | | | | 4 | | | | | 9 | | | +----+---+ + + | | 0 | an stop | | | | 7 | data | | | | 5 | | | | | 0 | | | +----+---+ + + | | 0 | An Start | Reassessment prior to anesthesia induction/procedure. | | | 7 | | | | | 5 | | | | | 6 | | | +----+---+ + + | | 0 | Antibiotic | | | | 8 | Given | | | | 0 | | | | | 1 | | | +----+---+ + + | | 0 | Preoxygenat | | | | 8 | ed | | | | 0 | | | | | 1 | | | +----+---+ + + | | 0 | An | | | | 8 | Induction | | | | 0 | | | | | 2 | | | +----+---+ + + | | 0 | An | | | | 8 | Intubation | | | | 0 | | | | | 3 | | | +----+---+ + + | | 0 | [place] | | | | 8 | 43-degrees | | | | 0 | | | | | 5 | | | +----+---+ + + | | 0 | First | | | | 8 | Inc/Proc St | | | | 1 | | | | | 6 | | | +----+---+ + + | | 0 | [place] off | | | | 8 | | | | | 2 | | | | | 8 | | | +----+---+ + + | | 0 | an stop | | | | 8 | data | | | | 3 | | | | | 0 | | | +----+---+ + + | | 0 | An Stop | Patient handed off to recovery nurse. | | | 3 | | | | | 5 | | | +----+---+ + + +------+ | Meds | +------+ + + + | Name | Total | + + + | midazolam | 2 mg | + + + | fentaNYL | 200 mcg | + + + | propofol | 200 mg | + + + | dexamethasone | 10 mg | + + + | ceFAZolin (ANCEF, KEFZOL) 100 | 3 g | | mg/mL IV syringe 3 g | | + + + | lactated ringers (LR) infusion | 1,000 mL | + + + + + | Name | + + | N2O Flow Rate (L/Min) | + + | O2 Flow Rate (L/Min) | + + | Insp O2 | + + | Exp SEV | + + | Air Flow Rate (L/Min) | + + + + | No blood administrations on file. | + + +--------+ + + + | Type | Details | Placement | Removal | +--------+ + + + | Periph | 10/07/17; 1430; Right; | 10/07/17 1430 by | 10/21/17 1335 by | | eral | Antecubital; [id number] | Cyndie Cooley RN | Kimberly Vasquez RN | | IV | catheter system; Hematology, | | | | | Chemistry, Coagulation; 0; | | | | | 10/21/17; 1335 | | | +--------+ + + + | Periph | 10/21/17; 0651; Left; Hand; | 10/21/17 0651 by | 10/21/17 1225 by | | eral | [id number] catheter system; | Leila Jaramillo RN | Clau Rosenberg RN | | IV | 20 gauge, 1 1/2 in length; | | | | | distraction, intradermal | | | | | injection, tolerated well; no | | | | | longer indicated; expected | | | | | removal post discharge; 10/21/17; | | | | | 1225 | | | +--------+ + + + | Airway | Placement Date: 10/21/17; | 10/21/17802 by | 10/21/17 0840 by | | | Placement Time: 802 (created via | Lisa Waller | Tyrel Hartman, | | | procedure documentation); Mask | DO [place] | RN | | | Ventilation: EZ; Attempts: 1; | | | | | Airway Type: laryngeal mask; | | | | | Size: 5; Trauma: none; Placement | | | | | Check: exhaled CO2 detection | | | | | device, bilateral chest rise; | | | | | Removal: removed by mitul [place] | | | | | protocol; Removal Date: 10/21/17; | | | | | Removal Time: 0840 | | | +--------+ + + + | Incisi | 10/21/17; 0851; Right; foot; | 10/21/17 0851 by | 10/21/17 1225 by | | on | expected removal post discharge; | Tyrel Hartman, | Clau Rosenberg RN | | | 10/21/17; 1225 | RN | | +--------+ + + + in this encounter Social History + + + +--------+------+ | [...] Treatment Not on fileas of this encounter Results Anesthesia Perineural Note (10/21/2017 0811) + + [...] | | | Electronically Signed by: Lisa Lugo, | | | ESig date/time: 10/21/2017 | | | 8:11 | [...] | MAR for all medication documentation.Performing provider: ILSA LUGO | | GABRIELElectronically Signed by: DO [...] | | | Electronically Signed by: Lisa Lugo, | | | ESig date/time: 10/21/2017 | | | 8:09 | | + + + + + | Procedure Note | + + | Lisa Lugo DO - 10/21/2017 0809 PDT Perineural Procedure Note10/21/2017 [...] provider: LISA LUGOlectronically Signed by: | | DO Ramila Hopeg date/time: 10/21/2017 8:09 | |Comments: SpO2, NBP [...] Signed by: DO Winsome Hope date/time: 018 8:09 | + + Anesthesia [...] Performing provider: [place] | | | LISA WALLER Electronically Signed by: Lisa Mata | | [...] | |Electronically Signed by: DO Winsome Hope date/time : 10/21/2017 8:09 | | | + + in this encounter Visit Diagnoses Not on filein this encounter Administered Medications + +--------+ +------+------+------+ | Medication Order | MAR | Action | Dose | Rate | Site | | | Action | Date | | | | + +--------+ +------+------+------+ | ceFAZolin (ANCEF, KEFZOL) 100 | Given | 10/21/2017 | 3 g | | | | mg/mL IV syringe 3 g 3 g, | | 8:01 | | | | | Intravenous, Administer over 30 | | PDT | | | | | Minutes, Prior to Incision, | | | | | | | Starting 10/21/17 at 0319, For | | | | | | | 1 dose, Give within one hour | | | | | | | prior to incision. | | | | | | + +--------+ +------+------+------+ +---+---+ | | | +---+---+ + +-------+ +-------+---+---+ | dexamethasone (PF) 10 mg/mL | Given | 10/21/2017 | 10 mg | | | | injection Intravenous, PRN, | | 8:02 | | | | | Starting Thu10/21/17 at 0802, | | PDT | | | | | Anesthesia Intra-op | | | | | | + +-------+ +-------+---+---+ +---+---+ | | | +---+---+ + +-------+ +--------+---+---+ | fentaNYL (PF) injection | Given | 10/21/2017 | 50 mcg | | | | Intravenous, PRN, Pain, Starting | | 8:01 | | | | | Thu10/21/17 at 0801, Anesthesia | | PDT | | | | | Intra-op | | | | | | + +-------+ +--------+---+---+ +-------+ +---------+---+---+ | Given | 10/21/2017 | 50 mcg | | | | | 8:06 | | | | | | PDT | | | | +-------+ +---------+---+---+ | Given | 10/21/2017 | 100 mcg | | | | | 8:22 | | | | | | PDT | | | | +-------+ +---------+---+---+ +---+---+ | | | +---+---+ + +---------+ +---+-------+---+ | lactated ringers (LR) [...] +---+---+ | | | +---+---+ + +-------+ +------+---+---+ | midazolam (VERSED) 1 mg/mL | Given | 10/21/2017 | 2 mg | | | | injection Intravenous, PRN, | | 7:32 | | | | | Anxiety, Starting 10/21/17 at | | PDT | | | | | 0732, Anesthesia Intra-op | | | | | | + +-------+ +------+---+---+ +---+---+ | | | +---+---+ + +-------+ +--------+---+---+ | propofol (DIPRIVAN) injection | Given | 10/21/2017 | 200 mg | | | | Intravenous, PRN, Starting Wed | | 8:02 | | | | | 10/21/17 at 0802, Anesthesia | | PDT | | | | | Intra-op | | | | | | + +-------+ +--------+---+---+ +---+---+ | | | +---+---+ in this encounter"
--- OUTSIDE RECORDS SUMMARY | ~2017-12-23 | XMS | Clinical Summary ---
Demographics + + + | Address | [address] | | | [place] [address] | + + + | Home Phone | | + + + | Preferred Language | Unknown | + + + | Marital Status | | + + + | Baptist Affiliation | UNK | + + + [...] Team Providers + +------+ + | Care Advisor To Command In Combat Name | Role | Phone | + +------+ + | No Pcp Per Patient | PP | Unavailable | + +------+ + Source Comments JULIENNE is fully live on both [facility] and [facility] InPatient.[facility] Allergies + + + + [...] | 3/20 | | e | | [place] | two times daily. Use | | [...] | Self [birth year] Home: | [address] | | | jeannie/Nick | | 1975 | [phone] | [place] | | | [place] | | | [phone] | [phone] | + +--------+ +--------+ + +"
--- OUTSIDE RECORDS SUMMARY | ~2017-12-23 | XMS | Encounter Summary ---
Demographics + + + | Address | [address] [place] [address] | | | [place] [address] | + + + | Home Phone | | + + + | Preferred Language | Unknown | + + + | Marital Status | | + + + | Synagogue Affiliation | Unknown | + + + | Race | Unknown | + + + | Ethnic Group | Unknown | + + + Author + + + | Author | [facility] | | | and [place] | + + + | Organization | [facility] | | | [...] Team Providers + +------+ + | Care Field Technician Name | Role | Phone | + +------+ + | Ryna Brown DO | PCP | | + [...] | | | | | [address] | [place] | | | | | [place] | [address] | | | | | [address] | | | | | | [phone] | | | +--------+ + + + [...]
--- OUTSIDE RECORDS SUMMARY | ~2017-12-23 | XMS | Encounter Summary ---
Demographics + + + | Address | [address] [place] [address] | | | [place] [address] | + + + | Home Phone | | + + + | Preferred Language | Unknown | + + + | Marital Status | | + + + | Protestant Affiliation | Unknown | + + + | Race | Unknown | + + + | Ethnic Group | Unknown | + + + Author + + + | Author | [facility] | | | and [place] | + + + | Organization | [facility] | | [...] Team Providers + +------+ + | Care Contract Administrator Name | Role | Phone | + [...] + + | 10/21/ | Anesthesia | [facility] | Lisa Lugo | | | 2018 | Event | MED CTR OR INTRA OP | DO Sridhar [address] | | | | | [address] | [facility] | | | | | [place] | [place] [address] | | | | | [address] | [phone] | | | | | [phone] | | | +--------+ + + + [...] +----+---+ + + | | 0 | [place] | | | | 8 | 43-degrees | | | | 0 | | | | | 5 | | | +----+---+ + + | | 0 | First | | | | 8 | Inc/Proc St | | | | 1 | | | | | 6 | | | +----+---+ + + | | 0 | [place] off | | | | 8 | [...] 1335 by | | eral | Antecubital; [id number] | Cyndie Cooley RN | Kimberly Vasquez RN | | IV | catheter system; Hematology, | | | | | Chemistry, Coagulation; 0; | | | | | 10/21/17; 1335 | | | +--------+ + + + | Periph | 10/21/17; 0651; Left; Hand; | 10/21/17 0651 by | 10/21/17 1225 by | | eral | [id number] catheter system; | Leila Jaramillo RN | [...] Procedure Note | + + | Lisa uLgo DO - 10/21/2017 0809 PDT Anesthesia Airway [...]
--- OUTSIDE RECORDS SUMMARY | ~2017-12-23 | XMS | Encounter Summary ---
Demographics + + + | Address | [address] [place] [address] | | | [place] [address] | + + + | Home Phone | | + + + | Preferred Language | Unknown | + + + | Marital Status | | + + + | Latter-Day Affiliation | Unknown | + + + | Race | Unknown | + + + | Ethnic Group | Unknown | + + + Author + + + | Author | [facility] | | | and [place] | + + + | Organization | [facility] | | [...] Team Providers + +------+ + | Care Railway Switch Operator Name | Role | Phone | + +------+ + | Ryan Brown DO | PCP | | + +------+ + Encounter Details +--------+ + + + + | Date | Type | Department | Care Team | Description | +--------+ + + + + | 10/21/ | Procedure | [facility] | | | | 2017 | Pass | MED CTR OR INTRA OP | | | | | | [address] | | | | | | [place] | | | | | | [address] | | | | | | [phone] | | | +--------+ + + + [...]
--- OUTSIDE RECORDS SUMMARY | ~2017-12-23 | XMS | Encounter Summary ---
Demographics + + + | Address | [address] [place] [address] | | | [place] [address] | + + + | Home Phone | | + + + | Preferred Language | Unknown | + + + | Marital Status | | + + + | Gnosticism Affiliation | Unknown | + + + | Race | Unknown | + + + | Ethnic Group | Unknown | + + + Author + + + | Author | [facility] | | | and [place] | + + + | Organization | [facility] | | | [...] Team Providers + +------+ + | Care Forensic Photographer Name | Role | Phone | + [...] + + | 10/21/ | Hospital | [facility] | Kaela Gonzales, | Laceration of right | | 2018 | Encounter | MED CTR OR INTRA OP | DPM [address] | great toe without | | | | [address] | [place], [place] | foreign body present | | | | [place], [place] | [address] | or damage to nail, | | | | [address] | [phone] | sequela (Primary Dx) | | | | [phone] | | | +--------+ + + + [...] unusual that concerns you Date Last Reviewed: 12/16/201419991069-7654 [employer]. [address] [place] [address]. All righ ts reserved. This information is [...] your own shoe again. Date Last Reviewed: 01/04/201519995450-2590 [employer]. [address] [place] [address], [place] [address]. All righ ts reserved. This information is [...] [facility] | | | | | [facility] | | | | | [...] + | [facility] | [address] | [place] | [phone] | | [facility] | | [address] | | | - LABORATORY | | | | + + + + + | [facility] | [address] | [place] | | | [facility] | | [address] | | | - LABORATORY | | [...] + | [facility] | [address] | [place], [place] | [phone] | | [facility] | | [address] | | | - LABORATORY | | | | + + + + + | [facility] | [address] | [place], [place] | | | [facility] | | [address] | | | - LABORATORY | | | | + + + + + POC Glucose (10/21/2017853) + +---------+ + + | Component | Value | Ref Range | Performed At | + +---------+ + + | Glucose, POC | 338 (H) | 70 - 109 mg/dL | [facility] | | | | | [...] + | [facility] | [address] | [place], [place] | [phone] | | [facility] | | [address] | | | - LABORATORY | | | | + + + + + | [facility] | [address] | [place], [place] | | | [facility] | | [address] | | | - LABORATORY | | [...] + | [facility] | [address] | [place] | [phone] | | [facility] | | [address] | | | - LABORATORY | | | | + + + + + | [facility] | [address] | [place], [place] | | | [facility] | | [address] | | | - LABORATORY | | [...]
--- OUTSIDE RECORDS SUMMARY | ~2017-12-23 | XMS | Encounter Summary ---
Demographics + + + | Address | [address] [place] [address] | | | [place] [address] | + + + | Home Phone | | + + + | Preferred Language | Unknown | + + + | Marital Status | | + + + | Hoahaoism Affiliation | Unknown | + + + | Race | Unknown | + + + | Ethnic Group | Unknown | + + + Author + + + | Author | [facility] | | | and [place] | + + + | Organization | [facility] | | | [...] Team Providers + +------+ + | Care Occupational Therapy Department Chair Name | Role | Phone | + [...] + + | 10/21/ | Hospital | [facility] | Kaela Gonzales, | Laceration of right | | 2018 | Encounter | MED CTR OR INTRA OP | DPM [address] | great toe without | | | | [address] | [place], [place] | foreign body present | | | | [place] | [address] | or damage to nail, | | | | [address] | [phone] | sequela (Primary Dx) | | | | [phone] | | | +--------+ + + + [...] unusual that concerns you Date Last Reviewed: 12/16/201419994209-3091 [employer]. [address] [place] [address]. All righ ts reserved. This information is [...] your own shoe again. Date Last Reviewed: 01/04/201519997929-8591 [employer]. [address] [place] [address], [place] [address]. All righ ts reserved. This information is [...] [facility] | | | | | [facility] | | | | | [...] + | [facility] | [address] | [place] | [phone] | | [facility] | | [address] | | | - LABORATORY | | | | + + + + + | [facility] | [address] | [place] | | | [facility] | | [address] | | | - LABORATORY | | | | + + + + + POC Glucose (10/21/20171002) + +---------+ + + | Component | Value | Ref Range | Performed At | + +---------+ + + | Glucose, POC | 419 (H) | 70 - 109 mg/dL | [facility] | | | | | [facility] | | | | | [...] + | [facility] | [address] | [place], [place] | [phone] | | [facility] | | [address] | | | - LABORATORY | | | | + + + + + | [facility] | [address] | [place], [place] | | | [facility] | | [address] | | | - LABORATORY | | | | + + + + + POC Glucose (10/21/2017853) + +---------+ + + | Component | Value | Ref Range | Performed At | + +---------+ + + | Glucose, POC | 338 (H) | 70 - 109 mg/dL | [facility] | | | | | [facility] [...] + | [facility] | [address] | [place], [place] | [phone] | | [facility] | | [address] | | | - LABORATORY | | | | + + + + + | [facility] | [address] | [place], [place] | | | [facility] | | [address] | | | - LABORATORY | | [...] + | [facility] | [address] | [place] | [phone] | | [facility] | | [address] | | | - LABORATORY | | | | + + + + + | [facility] | [address] | [place], [place] | | | [facility] | | [address] | | | - LABORATORY | | [...]
--- OUTSIDE RECORDS SUMMARY | ~2017-12-23 | XMS | Encounter Summary ---
Demographics + + + | Address | [address] [place] [address] | | | [place] [address] | + + + | Home Phone | | + + + | Preferred Language | Unknown | + + + | Marital Status | | + + + | Confucianism Affiliation | Unknown | + + + [...] Team Providers + +------+ + | Care Front Desk Officer Name | Role | Phone | + [...] [place] | | | | | | [address] | | | | | | [phone] | | | +--------+ + + + [...]
--- OUTSIDE RECORDS SUMMARY | ~2017-12-23 | XMS | Encounter Summary ---
Demographics + + + | Address | [address] [place] [address] | | | [place] [address] | + + + | Home Phone [...] Team Providers + +------+ + | Care Conformal Pad Former Name | Role | Phone | + [...] + + | 10/21/ | [facility] | Kaela Gonzales, | Right Big Toe Wound | | 2018 | | MED CTR OR INTRA OP | DPM [address] | Debridement w/ | | | | [address] | [place], [place] | Removal of All | | | | [place], [place] | [address] | Nonviable Tissue | | | | [address] | [phone] | | | | [phone] | | | +--------+---------+ + + + [...] unusual that concerns you Date Last Reviewed: 12/16/201419994647-4843 [employer]. [address] [place] [address]. All righ ts reserved. This information is [...] your own shoe again. Date Last Reviewed: 01/04/201519995935-2119 [employer]. [address] [place] [address], [place] [address]. All righ ts reserved. This information is [...] [facility] | | | | | [facility] | | | | | CENTER - | | | | | LABORATORY | + +---------+ + + + + | Specimen | + + | Blood | + + + + + + + | Performing | Address | City/State/Zipcode | Phone Number | | Organization | | | | + + + + + | [facility] | [address] | [place] | [phone] | | [facility] | | [address] | | | - LABORATORY | | | | + + + + + | [facility] | [address] | [place] | | | [facility] | | [address] | | | - LABORATORY | | [...] + | [facility] | [address] | [place] | [phone] | | [facility] | | [address] | | | - LABORATORY | | | | + + + + + | [facility] | [address] | [place] | | | [facility] | | [address] | | | - LABORATORY | | | | + + + + + POC Glucose (10/21/201754) + +---------+ + + | Component | Value | Ref Range | Performed At | + +---------+ + + | Glucose, POC | 338 (H) | 70 - 109 mg/dL | [facility]. | | | | | [facility] | | | | | CENTER - | | | | | LABORATORY | + +---------+ + + + + | Specimen | + + | Blood | + + + + + + + | Performing | Address | City/State/Zipcode | Phone Number | | Organization | | | | + + + + + | [facility] | [address] | [place], [place] | [phone] | | [facility] | | [address] | | | - LABORATORY | | | | + + + + + | [facility] | [address] | [place], [place] | | | [facility] | | [address] | | | - LABORATORY | | [...] + | [facility] | [address] | [place], [place] | [phone] | | [facility] | | [address] | | | - LABORATORY | | | | + + + + + | [facility] | [address] | [place], [place] | | | [facility] | | [address] | | | - LABORATORY | | [...]
--- OUTSIDE RECORDS SUMMARY | ~2017-12-23 | XMS | Encounter Summary ---
Demographics + + + | Address | [address] [place] [address] | | | [place] [address] | + + + | Home Phone | | + + + | Preferred Language | Unknown | + + + | Marital Status | | + + + | Zoroastrianism Affiliation | Unknown | + + + | Race | Unknown | + + + | Ethnic Group | Unknown | + + + Author + + + | Author | [facility] | | | and [place] | + + + | Organization | [facility] | | | [...] Team Providers + +------+ + | Care Junior Linux Administrator Name | Role | Phone | [...] | | | | | [address] | [place] | | | | | [place] | [address] | | | | | [address] | | | | | | [phone] | | | +--------+ + + + [...]
--- OUTSIDE RECORDS SUMMARY | ~2017-12-23 | XMS | Encounter Summary ---
Demographics + + + | Address | [address] [place] [address] | | | [place] [address] | + + + | Home Phone | | + + + | Preferred Language | Unknown | + + + | Marital Status | | + + + | Buddhism Affiliation | Unknown | + + + | Race | Unknown | + + + | Ethnic Group | Unknown | + + + Author + + + | Author | [facility] | | | and [place] | + + + | Organization | [facility] | | [...] Team Providers + +------+ + | Care Public Speaking Coach Name | Role | Phone | + [...] | | | | exposed | [place] [address] | [address] | | | | | ([facility]) | | Phone: | | | | | | | [phone] | +--------+ + + + + + Reason for Visit + + + | Reason | Comments | + + + | Skin Ulcer | | + + + Encounter Details +--------+ + + + + | Date | Type | Department | Care Team | Description | +--------+ + + + + | 10/07/ | Emergency | [facility] | Derian Orr, | Skin ulcer of left | | 2018 | | [facility] EM[facility] | MD [address] | foot with fat layer | | | | CENTER [address] | [place], [place] | exposed (HCC) | | | | [place], [place] | [address] | (Primary Dx); | | | | [address] | | Diabetic ulcer of | | | | [phone] | | toe of left foot | [...] | | + +--------+ + + | [facility] - | Routin | Skin ulcer [...] TRAN | | | incubation. | | [facility] | | | | | [place] - | | | | | LABORATORY | + + + + + + + | Specimen | + + | Blood - Peripheral | | Blood | + + + + + + + | Performing | Address | City/State/Zipcode | Phone Number | | Organization | | | | + + + + + | [facility] | [address] | [place], [place] | [phone] | | [facility] | | [address] | | | - LABORATORY | | | | + + + + + | [facility] | [address] | [place], [place] | | | [facility] | | [address] | | | - LABORATORY | | [...] + | [facility] | [address] | [place] | [phone] | | [facility] | | [address] | | | - LABORATORY | | | | + + + + + | [facility] | [address] | [place] | | | [facility] | | [address] | | | - LABORATORY | | | | + + + + + C-Reactive Protein, High Sensitivity (10/07/2017 1437) + + + + + | Component | Value | Ref Range | Performed At | + + + + + | CRP, High Sensitive | 11.07 (H) | <=3.00 mg/L | [facility] | | | | | [facility] [...] + | [facility] | [address] | [place] | [phone] | | [facility] | | [address] | | | - LABORATORY | | | | + + + + + | [facility] | [address] | [place] | | | [facility] | | [address] | | | - LABORATORY | | [...] + | [facility] | [address] | [place] | [phone] | | [facility] | | [address] | | | - LABORATORY | | | | + + + + + | [facility] | [address] | [place] | | | [facility] | | [address] | | | - LABORATORY | | [...] ST. | | | Anticoagulation | | [facility] | | | Range: 2.0 - [...] [address] | [place] | [phone] | | [facility] | | [address] | | | - LABORATORY | | | | + + + + + | [facility] | [address] | [place] | | | [facility] | | [address] | | | - LABORATORY | | [...] + | [facility] | [address] | [place], [place] | [phone] | | [facility] | | [address] | | | - LABORATORY | | | | + + + + + | [facility] | [address] | [place], [place] | | | [facility] | | [address] | | | - LABORATORY | | [...] 0.70 | 0.60 - 1.30 mg/dL | [facility] | | Serum/Plasma | | | [facility] | | | | | CENTER - | | | | | LABORATORY | + + + + + | eGFR if not | >60Comment: GLOMERULAR | >=60 mL/min/1.73m2 | [facility] | | [place]OREAN | FILTRATION | | [facility] | | | RATE,ESTIMATED mL/min | | CENTER - | | | /1.22v6Mwjq than 60 | | LABORATORY | | [...] 8.6 | 8.3 - 10.5 mg/dL | [facility] | | | | | [facility] [...] + | BUN/CREA | 15.7 | | [facility] | | | | | [facility] [...] [address] | [place] | [phone] | | [facility] | | [address] | | | - LABORATORY | | | | + + + + + | [facility] | [address] | [place] | | | [facility] | | [address] | | | - LABORATORY | | [...] [address] | [place] | [phone] | | [facility] | | [address] | | | - LABORATORY | | | | + + + + + | [facility] | [address] | [place], [place] | | | [facility] | | [address] | | | - LABORATORY | | [...]
--- OUTSIDE RECORDS SUMMARY | ~2017-12-23 | XMS | Encounter Summary ---
Demographics + + + | Address | [address] [place] [address] | | | [place] [address] | + + + | Home Phone | | + + + | Preferred Language | Unknown | + + + | Marital Status | | + + + | Holiness Affiliation | Unknown | + + + | Race | Unknown | + + + | Ethnic Group | Unknown | + + + Author + + + | Author | [facility] | | | and [place] | + + + | Organization | [facility] | | | [...] Team Providers + +------+ + | Care Door Frame Builder Name | Role | Phone | + [...] [place] | | | | | | [address] | | | | | | [phone] | | | +--------+ + + + [...]
--- OUTSIDE RECORDS SUMMARY | ~2017-12-23 | XMS | Encounter Summary ---
Demographics + + + | Address | [address] [place] [address] | | | [place] [address] | + + + | Home Phone | | + + + | Preferred Language | Unknown | + + + | Marital Status | | + + + | Temple Affiliation | Unknown | + + + | Race | Unknown | + + + | Ethnic Group | Unknown | + + + Author + + + | Author | [facility] | | | and [place] | + + + | Organization | [facility] | | [...] Team Providers + +------+ + | Care Wheat Inspector Name | Role | Phone | + [...] + + | 10/21/ | Anesthesia | [facility] | Lisa Lugo | | | 2018 | Event | [facility] OR INTRA OP | DO Sridhar [address] | | | | | [address] | [address] [facility] | | | | | [place] | [place] [address] | | | | | [address] | [phone] | | | | | [phone] | | | +--------+ + + + [...] +----+---+ + + | | 0 | [place] | | | | 8 | 43-degrees | | | | 0 | | | | | 5 | | | +----+---+ + + | | 0 | First | | | | 8 | Inc/Proc St | | | | 1 | | | | | 6 | | | +----+---+ + + | | 0 | [place] off | | | | 8 | [...] 1335 by | | eral | Antecubital; [id number] | Cyndie Cooley RN | Kimberly Vasquez RN | | IV | catheter system; Hematology, | | | | | Chemistry, Coagulation; 0; | | | | | 10/21/17; 1335 | | | +--------+ + + + | Periph | 10/21/17; 0651; Left; Hand; | 10/21/17 0651 by | 10/21/17 1225 by | | eral | [id number] catheter system; | Leila Jaramillo RN | [...]
--- OUTSIDE RECORDS SUMMARY | ~2017-12-23 | XMS | Encounter Summary ---
Demographics + + + | Address | [address] [place] [address] | | | [place] [address] | + + + | Home Phone | | + + + | Preferred Language | Unknown | + + + | Marital Status | | + + + | Confucianism Affiliation | Unknown | + + + | Race | Unknown | + + + | Ethnic Group | Unknown | + + + Author + + + | Author | [facility] | | | and [place] | + + + | Organization | [facility] | | | [...] Team Providers + +------+ + | Care Instructor Bus Trol[employer]i Name | Role | Phone | + [...] | | | | exposed | [place] [address] | [address] | | | | | ([facility]) | | Phone: | | | | | | | [phone] | +--------+ + + + + + Reason for Visit + + + | Reason | Comments | + + + | Skin Ulcer | | + + + Encounter Details +--------+ + + + + | Date | Type | Department | Care Team | Description | +--------+ + + + + | 10/07/ | Emergency | [facility] | Derian Orr, | Skin ulcer of left | | 2018 | | MED CTR EMERGENCY | MD [address] | foot with fat layer | | | | CENTER [address] | [place], [place] | exposed (HCC) | | | | [place], [place] | [address] | (Primary Dx); | | | | [address] | | Diabetic ulcer of | | | | [phone] | | toe of left foot | [...] | | + +--------+ + + | [facility] - | Routin | Skin ulcer [...] TRAN | | | incubation. | | [facility] | | | | | [place] - | | | | | LABORATORY | + + + + + + + | Specimen | + + | Blood - Peripheral | | Blood | + + + + + + + | Performing | Address | City/State/Zipcode | Phone Number | | Organization | | | | + + + + + | [facility] | [address] | [place], [place] | [phone] | | [facility] | | [address] | | | - LABORATORY | | | | + + + + + | [facility] | [address] | [place], [place] | | | [facility] | | [address] | | | - LABORATORY | | [...] + | [facility] | [address] | [place] | [phone] | | [facility] | | [address] | | | - LABORATORY | | | | + + + + + | [facility] | [address] | [place] | | | [facility] | | [address] | | | - LABORATORY | | | | + + + + + C-Reactive Protein, High Sensitivity (10/07/2017 1437) + + + + + | Component | Value | Ref Range | Performed At | + + + + + | CRP, High Sensitive | 11.07 (H) | <=3.00 mg/L | [facility] | | | | | [facility] | | | | | [...] + | [facility] | [address] | [place] | [phone] | | [facility] | | [address] | | | - LABORATORY | | | | + + + + + | [facility] | [address] | [place] | | | [facility] | | [address] | | | - LABORATORY | | [...] + | [facility] | [address] | [place] | [phone] | | [facility] | | [address] | | | - LABORATORY | | | | + + + + + | [facility] | [address] | [place] | | | [facility] | | [address] | | | - LABORATORY | | | | + + + + + Protime INR (10/07/2017 1437) + + + + + | Component | Value | Ref Range | Performed At | + + + + + | Protime | 12.8 | 11.3 - 13.9 seconds | [facility] | | | | | [facility] | | | | | CENTER - | | | | | LABORATORY | + + + + + | INR | 0.97Comment: Usual Oral | 0.90 - 1.10 | [facility] | | | Anticoagulation | | [facility] | | | Range: 2.0 - | [...] [address] | [place] | [phone] | | [facility] | | [address] | | | - LABORATORY | | | | + + + + + | [facility] | [address] | [place] | | | [facility] | | [address] | | | - LABORATORY | | | | + + + + + PTT (10/07/20171436) + +-------+ + + | Component | Value | Ref Range | Performed At | + +-------+ + + | PTT | 29 | 22 - 36 seconds | [facility] | | | | | [facility] | | | | | [...] + | [facility] | [address] | [place], [place] | [phone] | | [facility] | | [address] | | | - LABORATORY | | | | + + + + + | [facility] | [address] | [place], [place] | | | [facility] | | [address] | | | - LABORATORY | | [...] 0.70 | 0.60 - 1.30 mg/dL | [facility] | | Serum/Plasma | | | [facility] | | | | | CENTER - | | | | | LABORATORY | + + + + + | eGFR if not | >60Comment: GLOMERULAR | >=60 mL/min/1.73m2 | [facility] | | [place] | FILTRATION | | [facility] | | | RATE,ESTIMATED mL/min | | CENTER - | | | /1.09x4Vvkb than 60 | | LABORATORY | | [...] 8.6 | 8.3 - 10.5 mg/dL | [facility] | | | | | [facility] | | | | | [...] + | BUN/CREA | 15.7 | | [facility] | | | | | [facility] | | | | | [...] [address] | [place] | [phone] | | [facility] | | [address] | | | - LABORATORY | | | | + + + + + | [facility] | [address] | [place] | | | [facility] | | [address] | | | - LABORATORY | | | | + + + + + CBC w/ Auto Differential (10/07/2017 1437) + + + + + | Component | Value | Ref Range | Performed At | + + + + + | WBC | 6.7 | 4.0 - 11.0 K/uL | [facility] | | | | | [facility] | | | | | [...] [facility] | | | | | [facility] | | | | | [...] [address] | [place] | [phone] | | [facility] | | [address] | | | - LABORATORY | | | | + + + + + | [facility] | [address] | [place], [place] | | | [facility] | | [address] | | | - LABORATORY | | [...]
[~2017-12-23 13:08] MED LIST changes: +BACTRIM DS TAB1 EACH PO
[2017-12-23] MEDS ORDERED: HYDROCODON-ACE1 EAC8 PO (17:24)
[2017-12-24] MEDS ORDERED: PEN NEEDLE1 EA10 MISC (13:07)
[2017-12-24] MEDS ORDERED: OXYCODONE HCL5 MG PO (13:07)
[2017-12-24] MEDS ORDERED: DOXYCYCLINE HY100 MG PO (13:07)
[2017-12-24] MEDS ORDERED: LANTUS SOL100 UNIT/1 SUB-Q (13:07)
== END 2017-12-24 14:10 | disposition home or self-care (01) ==
LOC: ED 13:08 → MS 13:10
PROVIDERS: ADMIT Student in an Organized Health Care Education/Training Program
DX: E11.621 Type 2 diabetes mellitus with foot ulcer (principal); L97.519 Non-pressure chronic ulcer of other part of right foot with unspecified severity; E11.65 Type 2 diabetes mellitus with hyperglycemia; F17.210 Nicotine dependence, cigarettes, uncomplicated; E11.42 Type 2 diabetes mellitus with diabetic polyneuropathy; S92.421A Displaced fracture of distal phalanx of right great toe, initial encounter for closed fracture; S92.411A Displaced fracture of proximal phalanx of right great toe, initial encounter for closed fracture; X58.XXXA Exposure to other specified factors, initial encounter; Z89.412 Acquired absence of left great toe; Z91.14 Patient's other noncompliance with medication regimen; Z79.4 Long term (current) use of insulin; Z79.891 Long term (current) use of opiate analgesic; Z88.0 Allergy status to penicillin
CPT/HCPCS: 36415; 73660; 80048; 80053; 82010; 83036; 83605; 85025; 93971; 96365; 96366; 96367; 96372; 96375; 99285; G0378; J0692; J1650; J1815; J3370; J7030; J7040

== ENCOUNTER 2018-07-27 12:27 | Emergency (ER) | payer OTHER ==
[~2018-07-27] VITALS: Ht 190.5 cm; Wt 122.0 kg
--- OUTSIDE RECORDS SUMMARY | ~2018-07-27 | XMS | Clinical Summary ---
Demographics + + + | Address | [address] [place] [address] | | | [place] [address] | + + + | Home Phone | | + + + | Preferred Language | Unknown | + + + | Marital Status | | + + + | Taoist Affiliation | Unknown | + + + | Race | Unknown | + + + | Ethnic Group | Unknown | + + + Author + + + | Author | [facility] | | | and [place] | + + + | Organization | [facility] | | | and [...] Team Providers + +------+ + | Care Data Communications Technician Name | Role | Phone | + +------+ + | Ryan Brown DO | PP | | + +------+ + Allergies + + + + + + | Active Allergy | Reactions | Severity | Noted | Comments | | | | | Date | | + + + + + + | Penicillins | Other (See Comments) | | 10/08/19 | Was told by mom | | | | | 16 | he's allergic to it | | | | | | but he does not know | | | | | | what happens with | | | | | | it. | + + + + + + Medications + + + +---------+------+------+-------+ | Medication | Sig | Dispensed | Refills | Star | End | Statu | | | | | | t | Date | s | | | | | | Date | | | + + + +---------+------+------+-------+ | insulin aspart | Inject under the | | 0 | | | Activ | | (NOVOLOG PENFILL) | skin 3 times daily | | | | | e | | 100 units/mL | (before meals). | | | | | | | injection cartridge | | | | | | | + + + +---------+------+------+-------+ | metFORMIN | Take 1,000 mg by | | 0 | | | Activ | | (GLUCOPHAGE) 1000 MG | mouth 2 times daily | | | | | e | | tablet | (with breakfast & | | | | | | | | dinner). | | | | | | + + + +---------+------+------+-------+ | insulin glargine | Inject 60 Units | | 0 | | | Activ | | (LANTUS) 100 | under the skin | | | | | e | | units/mL injection | nightly. | | | | | | | (vial) | | | | | | | + + + +---------+------+------+-------+ | | Take 1 tablet by | 15 | 0 | 07/1 | | Activ | | HYDROcodone-acetamin | mouth every 6 hours | tablet | | 8/20 | | e | | ophen (NORCO) 5-325 | as needed for Pain. | | | 18 | | | | mg per tablet | | | | | | | + + + +---------+------+------+-------+ | insulin lispro | Inject under the | | 0 | | | Activ | | (HUMALOG) 100 | skin 3 times daily | | | | | e | | units/mL injection | (before meals). | | | | | | | (cartridge) | | | | | | | + + + +---------+------+------+-------+ Active Problems + + + | Problem | Noted Date | + + + | Infection of toe | 10/14/2017 | + + + | Lymphedema | 10/14/2017 | + + + | Laceration of great toe | 10/14/2017 | + + + | Peripheral circulatory disorder associated with type 2 diabetes | 10/14/2017 | | mellitus | | + + + | DASHAWN inhibitors - Daily Use | 10/14/2017 | + + + | Diabetes mellitus, type II - INSULIN & ORAL Control | 10/14/2017 | + + + | Obesity, Class II, BMI 35-39.9 | 10/14/2017 | + + + | Neuropathic ulcer of foot due to type 2 diabetes mellitus | 10/12/2014 | + + + | Chronic osteomyelitis involving ankle and foot | 10/11/2014 | + + + | Hyperlipidemia | 10/05/2012 | + + + | Vitamin D deficiency | 10/05/2012 | + + + | Hypertension | 08/18/2012 | + + + Social History + + + +--------+------+ | Tobacco Use | Types | Packs/Day | Years | Date | | | | | Used | | + + + +--------+------+ | Current Every Day | Cigarettes | 0.5 | 20 | | | Smoker | | | | | + + + +--------+------+ + +------+---+--------+ | Smokeless Tobacco: | Chew | | Quit: | | Former User | | | 1990 | + +------+---+--------+ + + +---------+ + | Alcohol Use | Drinks/We | oz/Week | Comments | | | ek | | | + + +---------+ + | No | | | | + + +---------+ + + + + | Sex Assigned at | Date Recorded | | | | + + + | Not on file | | + + + + + + + | Job Start Date | Occupation | Industry | + + + + | Not on file | Not on file | Not on file | + + + + + + + + | Travel History | Travel Start | Travel End | + + + + + + | No recent travel history available. | + + Last Filed Vital Signs + + + + | Vital Sign | Reading | Time Taken | + + + + | Blood Pressure | 132/79 | 10/21/2017944 PDT | + + + + | Pulse | 88 | 10/21/2017944 PDT | + + + + | Temperature | 36.6 C (97.9 F) | 10/21/2017833 PDT | + + + + | Respiratory Rate | 16 | 10/21/2017914 PDT | + + + + | Oxygen Saturation | 96% | 10/21/2017944 PDT | + + + + | Inhaled Oxygen | - | - | | Concentration | | | + + + + | Weight | 123.2 kg (271 lb 9.7 | 10/21/2017627 PDT | | | oz) | | + + + + | Height | 190.5 cm (6' 3") | 10/21/2017627 PDT | + + + + | Body Mass Index | 33.95 | 10/21/2017627 PDT | + + + + Plan of Treatment + + + + + | Health Maintenance | Due Date | Last Done | Comments | + + + + + | Diabetic Eye Exam | | | | | | 1 | | | + + + + + | Diabetic Foot Exam | | | | | | 1 | | | + + + + + | Hemoglobin A1c | | | | | Screening | 1 | | | + + + + [...] | + + + + + | Microalbumin | | | | | Screening | 8 | | | + + + + + | Statin Therapy | | | | | (optimal intensity) | 8 | | | + + + + + | Vaccine: Influenza | | | | | (Season Ended) | 9 | | | + + + + + Results Not on filefrom Last 3 Months Insurance +--------+--------+ +--------+-------+---------+------+ | Payer | Benefi | Subscriber | Effect | Phone | Address | Type | | | t Plan | ID | addison | | | | | | / | | Dates | | | | | | Group | | | | | | +--------+--------+ +--------+-------+---------+------+ | HOUGH | HOUGH | [id number] | 07/22/19 | | | PPO | | | ADD | | 17-Pre | | | | | | CHOICE | | sent | | | | | | FRST | | | | | | | | HLTH | | | | | | +--------+--------+ +--------+-------+---------+------+ + +--------+ +--------+ + + | Guarantor Name | Accoun | Relation to | Date | Phone | Billing Address | | | t Type | Patient | of | | | | | | | | | | + +--------+ +--------+ + + | Carlitos Brush | Person | Self | [birth year] | [address] | | | al/Fam | | 1975 | [phone] | [address] [place], [place] | | | [place] | | | [address] (Home) | [address] | + +--------+ +--------+ + + Advance Directives Patient has advance care planning documents, and code status on file. For more information, please contact:[facility] [place] [address] + + + + + | Code Status | Date | Date | Comments | | | Activated | Inactivated | | + + + + + | Full Code | 10/21/2017 | 10/21/2017 | | | | 11:50 | 14:51 | | + + + + +
--- OUTSIDE RECORDS SUMMARY | ~2018-07-27 | XMS | Clinical Summary ---
Demographics + + + | Address | [address] | | | [place] [address] | + + + | Home Phone | | + + + | Preferred Language | Unknown | + + + | Marital Status | | + + + | Moravian Affiliation | UNK | + + + [...] Team Providers + +------+ + | Care Sample Taker Operator Name | Role | Phone | + +------+ + | No Pcp Per Patient | PP | Unavailable | + +------+ + Source Comments JULIENNE is fully live on both [facility] Amb[facility] and [facility] Allergies + + + + + [...] | 3/20 | | e | | [place] | two times daily. Use | | [...] | + + + + + | Influenza (Flu) | | | | | vaccination (Season | 9 | | | | Ended) | | | | + + + + + Results Not on filefrom Last 3 Months Insurance + +--------+ +------+-------+---------+ | Payer | Benefi | Subscriber | Type | Phone | Address | | | t Plan | ID | | | | | | / | | | | | | | Group | | | | | + +--------+ +------+-------+---------+ | [employer] | FIRST | xxxxxxxxx | PPO | | | | | CHOICE | | | | | | | | | | | | | | HEALTH | | | | | + +--------+ +------+-------+---------+ + +--------+ +--------+ + + | Guarantor Name | Accoun | Relation to | Date | Phone | Billing Address | | | t Type | Patient | of | | | | | | | | | | + +--------+ +--------+ + + | TYRELL PEREZ | Person | Self | [birth year] | Home: | [address] | | | jeannie/Nick | | 1975 | [phone] [place] | | | [place] | | | [phone] | [phone] | + +--------+ +--------+ + +"
--- OUTSIDE RECORDS SUMMARY | ~2018-07-27 | XMS | Clinical Summary ---
Demographics + + + | Address | [address] | | | [place] [address] | + + + | Home Phone | | + + + | Preferred Language | Unknown | + + + | Marital Status | Single | + + + | Methodist Affiliation | Unknown | + + + | Race | Unknown | + + + | Ethnic Group | Unknown | + + + Author + + + | Author | [facility] | + + + | Organization | [facility] | + + + | Address | Unknown | + + + | Phone | Unavailable | + + + Support + + +---------+ + | Name | Relationship | Address | Phone | + + +---------+ + | Fanny Cano | ECON | Unknown | | + + +---------+ + Care Team Providers + +------+ + | Care Circus Trainer Name | Role | Phone | + [...] + +--------+ +------+-------+ + | MEDICAID | [place] | [id number] | | | [address] | | | N | | | | [place] | | | [place] | | | | [phone] | | | INTERACTIVE ACCOUNT MANAGER | | | | | + +--------+ [...] | Self | [birth year] | Home: | [address] | | | al/Fam | | 1975 | [phone] | [place] | | | [place] | | | [phone] | [phone] | + +--------+ +--------+ + +"
--- OUTSIDE RECORDS SUMMARY | ~2018-07-27 | XMS | Clinical Summary ---
Demographics + + + | Address | [address] | | | [place] [address] | + + + | Home Phone | | + + + | Preferred Language | Unknown | + + + | Marital Status | Single | + + + | Roman Catholic Affiliation | Unknown | + + + | Race | Unknown | + + + | Ethnic Group | Unknown | + + + Author + + + | Author | [facility] | + + + | Organization | [facility] | + + + | Address | Unknown | + + + | Phone | Unavailable | + + + Support + + +---------+ + | Name | Relationship | Address | Phone | + + +---------+ + | Fanny Cano | ECON | Unknown | | + + +---------+ + Care Team Providers + +------+ + | Care Staffing Program Manager Name | Role | Phone | + [...] +------+-------+ + | MEDICAID | [place] | [id number] | | | [address] | | | N | | | | [place] | | | [place] | | | | [phone] | | | BOARD HANDLER | | | | | + +--------+ [...] | Self | [birth year] | Home: | [address] | | | al/Fam | | 1975 | [phone] | [place] | | | [place] | | | [phone] | [phone] | + +--------+ +--------+ + +"
--- OUTSIDE RECORDS SUMMARY | ~2018-07-27 | XMS | Clinical Summary ---
Demographics + + + | Address | [address] [place] [address] | | | [place] [address] | + + + | Home Phone | | + + + | Preferred Language | Unknown | + + + | Marital Status | | + + + | Anglican Affiliation | Unknown | + + + | Race | Unknown | + + + | Ethnic Group | Unknown | + + + Author + + + | Author | [facility] | | | and [place] | + + + | Organization | [facility] | | [...] Team Providers + +------+ + | Care Jewelry Estimator Name | Role | Phone | + [...] +--------+--------+ +--------+-------+---------+------+ | HOUGH | HOUGH | [phone] | 07/22/19 | | | PPO | [...] Person | Self | [birth year] | [address] | | | al/Fam | | 1975 | [phone] | [address] [place], [place] | | | [place] | | | [phone] (Home) | [phone] | + +--------+ +--------+ + + Advance Directives Patient has advance care planning documents, and code status on file. For more information, please contact:[facility] [place] [facility] [address] + + + + + | Code Status | Date | Date | Comments | | | Activated | Inactivated | | + + + + + | Full Code | 10/21/2017 | 10/21/2017 | | | | 11:50 | 14:51 | | + + + + +
--- OUTSIDE RECORDS SUMMARY | ~2018-07-27 | XMS | Clinical Summary ---
Demographics + + + | Address | [address] | | | [place] [address] | + + + | Home Phone | | + + + | Preferred Language | Unknown | + + + | Marital Status | | + + + | Yarsanism Affiliation | UNK | + + + [...] Team Providers + +------+ + | Care Class A Truck Driver Name | Role | Phone | + +------+ + | No Pcp Per Patient | PP | Unavailable | + +------+ + Source Comments JULIENNE is fully live on both [facility] and [facility] InPatient.[facility] Allergies + + + [...] | 3/20 | | e | | [place] | two times daily. Use | | [...] | Self | [birth year] | Home: | [address] | | | jeannie/Nick | | 1975 | [phone] | [place] | | | [place] | | | [phone] | [phone] | + +--------+ +--------+ + +"
[~2018-07-27 12:27] MED LIST changes: +DOXYCYCLINE HY100 MG PO; +HYDROCODON-ACE1 EAC8 PO; +LANTUS SOL100 UNIT/1 SUB-Q; +NOVOLOG FL100 UNIT/1 SUB-Q; +OXYCODONE HCL5 MG PO; +PEN NEEDLE1 EA10 MISC; +SENNA LAX8.6 MG PO
--- OUTSIDE RECORDS SUMMARY | 2018-07-27 12:30 | XMS ---
Blair Notification: TYRELL PEREZ Security Transitional Care Manager Events No recent Security Events currently on file CRITERIA MET - PIA CARE PROVIDERS DR SANTOS BERNAL Primary Care Current PHONE: [phone] Kendrick has no Care Guidelines for this patient. E.Giulia VISIT COUNT (12 MO.) 1 [facility] 3 [facility] [place] TOTAL 4 NOTE: Visits indicate total known visits. ED/UCC VISIT TRACKING (12 MO.) 07/27/2018 12:28 [facility] [place] TYPE: Emergency COMPLAINT: - POSS LEFT FOOT INFECTION 12/23/2017 13:09 [facility] [place] TYPE: Emergency COMPLAINT: - R BIG TOE PAIN/NO INJURY 10/07/2017 09:48 [facility] Melva [facility] TYPE: Emergency DIAGNOSES: - Type 2 diabetes mellitus with foot ulcer - Elevated blood-pressure reading, without diagnosis of hypertension - toe injury - Non-pressure chronic ulcer of other part of left foot with fat layer exposed - Skin Ulcer 07/27/2017 18:00 [facility] [place] TYPE: Emergency COMPLAINT: - RT BIG TOE PAIN DIAGNOSES: - Local infection of the skin and subcutaneous tissue, unspecified - Allergy status to penicillin - Other alf (current) drug therapy - Nicotine dependence, unspecified, uncomplicated - Type 2 diabetes mellitus with other skin complications - Type 2 diabetes mellitus without complications INPATIENT VISIT TRACKING (12 MO.) 12/28/2017 11:35 [facility] [place] TYPE: Observation COMPLAINT: - AMPUTATION RIGHT GREAT TOE DIAGNOSES: - Other acute postprocedural pain - 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 - Non-pressure chronic ulcer of other part of right foot with unspecified severity - Acquired absence of left great toe - Nicotine dependence, cigarettes, uncomplicated - Body mass index (BMI) 33.0-33.9, adult - penitentiary (current) use of antibiotics - Type 2 diabetes mellitus with hyperglycemia - Type 2 diabetes mellitus with diabetic neuropathy, unspecified - Allergy status to penicillin - Other acute osteomyelitis, right ankle and foot - Type 2 diabetes mellitus with foot ulcer - Gangrene, not elsewhere classified - Type 2 diabetes mellitus with diabetic peripheral angiopathy with gangrene - Type 2 diabetes mellitus with other specified complication - Obesity, unspecified - Type 2 diabetes mellitus with unspecified diabetic retinopathy without macular edema - terminal gauger supervisor (current) use of opiate analgesic 12/23/2017 13:10 [facility] [place] TYPE: Observation COMPLAINT: - DIABETIC FOOT ULCER DIAGNOSES: - Type 2 diabetes mellitus with hyperglycemia - Non-pressure chronic ulcer of other part of right foot with unspecified severity - Displaced fracture of distal phalanx of right great toe, initial encounter for closed fracture - Patient's other noncompliance with medication regimen - Allergy status to penicillin - Exposure to other specified factors, initial encounter - Nicotine dependence, cigarettes, uncomplicated - terminal gauger supervisor (current) 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
[2018-07-27] MEDS ORDERED: BUPRENORPHIN-N1 EACH SL (12:43)
== END 2018-07-27 14:03 | disposition home or self-care (01) ==
LOC: ED 12:27
DX: E11.621 Type 2 diabetes mellitus with foot ulcer (principal); L97.529 Non-pressure chronic ulcer of other part of left foot with unspecified severity; F17.200 Nicotine dependence, unspecified, uncomplicated; Z90.49 Acquired absence of other specified parts of digestive tract; Z79.4 Long term (current) use of insulin
CPT/HCPCS: 99283

== ENCOUNTER 2022-06-25 12:42 | Emergency (ER) | payer MEDICARE, OTHER ==
[~2022-06-25] VITALS: Ht 190.5 cm; Wt 136.5 kg
[~2022-06-25 12:42] MED LIST changes: +BUPRENORPHIN-N1 EACH SL; +CIPRO500 MG PO
--- OUTSIDE RECORDS SUMMARY | 2022-06-25 12:52 | XMS ---
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 Care History Medical/Surgical 07/28/2018 [facility] - PATIENT HAS AN APT WITH DR SINGH ON 12/07/18 TO ESTABLISH CARE. E.DStephanie VISIT COUNT (12 MO.) [address] [place] [address] TOTAL 1 NOTE: Visits indicate total known visits. ED/UCC VISIT TRACKING (12 MO.) 06/25/2022 12:[address] [facility] [place] TYPE: Emergency COMPLAINT: - L FOOT DIABETIC WOUND INPATIENT VISIT TRACKING (12 MO.) No inpatient visits to display in this time frame [email or web address]
== END 2022-06-25 14:02 | disposition home or self-care (01) ==
LOC: ED 12:42
DX: E11.69 Type 2 diabetes mellitus with other specified complication (principal); L08.9 Local infection of the skin and subcutaneous tissue, unspecified; F17.200 Nicotine dependence, unspecified, uncomplicated; Z88.0 Allergy status to penicillin; Z79.899 Other long term (current) drug therapy
CPT/HCPCS: 99283; 99406

== ENCOUNTER 2023-04-23 20:45 | Emergency (ER) | payer OTHER ==
[~2023-04-23] VITALS: Ht 190.5 cm; Wt 136.5 kg
--- OUTSIDE RECORDS SUMMARY | 2023-04-23 20:46 | XMS ---
PreManage Notification: TYRELL PEREZ Security State Manager Events No recent Security Events currently on file CRITERIA MET - PIA CARE PROVIDERS Enrique Singh [facility] 07/28/2018-Current PHONE: Unknown -, Gely- Dentist: [employer] [facility] PHONE: [phone] SHARMILA BROWN [facility] Current PHONE: Unknown Kendrick has no Care Guidelines for this patient. Care History Medical/Surgical 07/28/[address] [facility] \R\- PATIENT HAS AN APT WITH DR SINGH ON 12/07/18 TO ESTABLISH CARE. E.D. VISIT COUNT (12 MO.) [address] [facility] [place] TOTAL 3 NOTE: Visits indicate total known visits. ED/UCC VISIT TRACKING (12 MO.) 04/23/2023 20:45 [facility] [place] TYPE: Emergency COMPLAINT: - BODY ACHES 06/26/2022 08:09 [facility] [place] TYPE: Emergency DIAGNOSES: - Other acute osteomyelitis, left ankle and foot - Other acute osteomyelitis, unspecified site 06/25/2022 12:[address] [facility] [place] TYPE: Emergency COMPLAINT: - L FOOT DIABETIC WOUND DIAGNOSES: - Allergy status to penicillin - Local infection of the skin and subcutaneous tissue, unspecified - Nicotine dependence, unspecified, uncomplicated - Other prison (current) drug therapy - Type 2 diabetes mellitus with other specified complication INPATIENT VISIT TRACKING (12 MO.) 06/26/2022 08:09 [facility] [place] TYPE: Medical Surgical DIAGNOSES: - Hyperlipidemia, unspecified - Other acute osteomyelitis, unspecified site - Type 2 diabetes mellitus with hyperglycemia [email or web address]
[2023-04-23 21:07] LABS: BASOPHILS 0.3 % (0-2); EOSINOPHILS 0.8 % (0-6); HEMATOCRIT 37.4 % (35.0-50.0); HEMOGLOBIN 12.9 g/dL (12.0-18.0); LYMPHOCYTES 6.8 % (24-44); MCH 26.4 (27-36); MCHC 34.5 g/dl (30-36); MCV 76.7 fl (81-99); MONOCYTES 5.7 % (0-12); NEUTROPHILS 86.4 % (39-80); PLATELET COUNT 73 K/uL (140-440); RBC 4.88 M/ul (4.3-5.7); RDW 14.4 (10.5-15.0)
[2023-04-23 21:25] LABS: LACTIC ACID, BLOOD 1.8 mmol/L (0.4-2.0)
[2023-04-23 21:28] LABS: ALBUMIN 3.4 g/dL (3.4-5.0); ALBUMIN/GLOBULIN RATIO 1.03 (1.1-2.4); BILIRUBIN, TOTAL 1.3 ng/dL (0.2-1.0); BUN/CREATININE RATIO 13.76 (6.0-28.6); CALCIUM 8.2 mg/dL (8.5-10.1); CREATININE, SERUM 1.09 mg/dL (0.70-1.30); PROTEIN, TOTAL 6.7 g/dL (6.4-8.2)
[2023-04-23 22:06] LABS: INFLUENZA B NAA NEGATIVE (NEGATIVE); RESPIRATORY SYNCYTIAL VIR NAA NEGATIVE (NEGATIVE)
[2023-04-23 23:58] LABS: BILIRUBIN, URINE NEGATIVE (negative); BLOOD/HGB, URINE MODERATE (Negative); KETONE, URINE NEGATIVE (Negative); LEUK ESTERASE, URINE NEGATIVE (negative); NITRITE, URINE NEGATIVE (negative)
[2023-04-24 00:03] LABS: EPITHELIAL CELLS, URINE SQUAMOUS 1+ /lpf (0-1+); RED BLOOD CELLS, URINE 41-50 /hpf (0-5)
[2023-04-24 00:04] LABS: BACTERIA, URINE RARE /hpf (negative); CASTS, URINE NONE SEEN \\lpf; CRYSTALS, URINE NONE SEEN (0-1+); REFLEX CULTURE, URINE No (No)
[2023-04-24] MEDS ORDERED: DOXYCYCLINE HY100 MG PO (00:19)
[2023-04-24 00:39] VITALS: BP 141/73
== END 2023-04-24 00:40 | disposition home or self-care (01) ==
LOC: ED 20:45
PROVIDERS: Emergency Medicine
DX: L03.116 Cellulitis of left lower limb (principal); R31.9 Hematuria, unspecified; R59.0 Localized enlarged lymph nodes; E11.9 Type 2 diabetes mellitus without complications; F17.200 Nicotine dependence, unspecified, uncomplicated; Z88.0 Allergy status to penicillin; Z79.899 Other long term (current) drug therapy; Z20.822 Contact with and (suspected) exposure to COVID-19
CPT/HCPCS: 36415; 71045; 73630; 76881; 80053; 81001; 83605; 85025; 87502; 96374; 99284-25; A9270; C9803; J0878; U0002

== ENCOUNTER 2024-08-26 05:35 | Day surgery (SDC) | payer OTHER ==
[2024-08-18 09:24] VITALS: BP 201/86
[2024-08-18 09:36] VITALS: BP 201/86
[~2024-08-26] VITALS: Ht 190.5 cm; Wt 148.3 kg
[~2024-08-26 05:35] MED LIST changes: +LACTATED RINGER'S 1,000 ML IV SCH; +LOSARTAN POTASS50 MG PO; +METFORMIN HCL500 MG PO; +TRULICITY4.5 MG/0.5; +VARENICLINE TA0.5 MG PO
[2024-08-26 05:57] VITALS: BP 191/90
[2024-08-26] MEDS ORDERED: IRON236 MG PO (06:02)
[2024-08-26] MEDS ORDERED: LIDOCAINE HCL 2% 5 ML SDV ONE (06:57)
[2024-08-26] MEDS ORDERED: propofoL 200 MG/20 ML VIAL ONE ×5 (06:58→08:16)
[2024-08-26] MEDS ORDERED: IBLOOD GLUCOSE TEST STRIP 1 EA TEST VI PRN (07:00)
[2024-08-26] MEDS ORDERED: LIDOCAINE HCL 1% 5 ML SDV INJ ONE (07:00)
--- NOTE | 2024-08-26 07:32 | NUR ---
PT NOT AVAILABLE FOR VISIT. PROVIDED PRAYER.
[2024-08-26] MEDS ORDERED: GLUCAGON,HUMAN RECOMBINANT 1 MG/ML VIAL ONE (08:06)
--- NOTE | 2024-08-26 08:37 | NUR ---
08/26/24 0837 Cecile Ferreira 8470 PT ARRIVED TO PACU ON RA, PT AWAKE AND TALKING TO RN. PT DENIES PAIN AND NAUSEA. HOB INCREASED AND PT DENIES CONCERNS. PLAN OF CARE DISCUSSED.
[2024-08-26 08:46] VITALS: BP 169/90
--- NOTE | 2024-08-31 10:11 | PATH ---
[facility] [address] [place] [address] Signed SPECIMEN(S): A PROXIMAL DESCENDING POLYP SPECIMEN(S): B COLON POLYP, 30 CM SPECIMEN SOURCE: A. PROXIMAL DESCENDING POLYP B. COLON POLYP, 30 CM CLINICAL HISTORY: Initial screening colonoscopy, polyps X2 FINAL PATHOLOGIC DIAGNOSIS: A. Proximal descending polyp, polypectomy: - Tubular adenoma. - Negative for high-grade dysplasia and malignancy. B. Colon polyp at 30 cm, polypectomy: - Tubular adenoma. - Negative for high-grade dysplasia and malignancy. DDF MICROSCOPIC EXAMINATION: Histologic sections of all submitted blocks are examined by light microscopy. These findings, together with the gross examination, support the pathologic diagnosis. GROSS DESCRIPTION: A. The specimen, labeled and designated "Trudi, proximal descending polyp," is received in formalin and consists of two pantoja soft tissue fragments, ranging from 0.2-0.4 cm. Entirely submitted in (A1). B. The specimen, labeled and designated "Trudi, colon polyp, 30 cm," is received in formalin and consists of a pantoja pedunculated polypoid piece of tissue (head: 0.7 x 0.6 x 0.6 cm, stalk: 0.4 x 0.3 x 0.3 cm). The resection margin is inked blue, and the tissue is bisected to reveal pantoja soft cut surfaces. The specimen is submitted entirely in cassette (B1). VB (under the direct supervision of a pathologist) The Gross Description was prepared using a voice recognition system. The report was reviewed for accuracy; however, sound-alike word errors, addition and/or deletions may occur. If there is any question about this report, please contact Client Services. PATIENT NAME: TYRELL PEREZ JR PATHOLOGY DATE OF : 71 REPORT #: [id number] PHYSICIAN: DEREK PATHOLOGY PCP: JARAD RAMIREZ MD REPORT IS CONFIDENTIAL AND NOT TO BE RELEASED WITHOUT AUTHORIZATION [facility] [address] [place], [place] [address] Signed ADDITIONAL NOTES: Immunohistochemical and/or in situ hybridization studies if performed in this case included appropriate positive controls that reacted as expected. This test was developed and its performance characteristics determined by [facility]. It has not been cleared or approved by the U.S. Food and Drug Administration. The FDA has determined that such clearance or approval is not necessary. This test is used for clinical purposes. It should not be regarded as investigational or for research. [facility] is certified under the Clinical Laboratory Improvement Amendments of 1988 (CLIA) as qualified to perform high complexity clinical laboratory testing. PERFORMING LABORATORY: Technical component was performed by [facility], [address] [place] [address] (CLIA# [id number]). Professional interpretation was performed by [facility] [address] [facility] [id number] Diagnostician: Eamon Mackenzie DO Pathologist Electronically Signed 08/31/2024 Copies: ~ PATIENT NAME: TYRELL PEREZ LINDY VIZCAINO PATHOLOGY DATE OF : 71 REPORT #: [id number] PHYSICIAN: DEREK ORTIZ PCP: JARAD RAMIREZ MD REPORT IS CONFIDENTIAL AND NOT TO BE RELEASED WITHOUT AUTHORIZATION
== END 2024-08-26 08:55 | disposition home or self-care (01) ==
LOC: DS 05:35
PROVIDERS: ATTEND Surgery
PROC: 0DBE8ZX Excision of Large Intestine, Via Natural or Artificial Opening Endoscopic, Diagnostic (ICD-10-PCS; principal; 2024-08-26 07:30)
DX: Z12.11 Encounter for screening for malignant neoplasm of colon (principal); D12.4 Benign neoplasm of descending colon; E11.40 Type 2 diabetes mellitus with diabetic neuropathy, unspecified; E11.59 Type 2 diabetes mellitus with other circulatory complications; Z79.84 Long term (current) use of oral hypoglycemic drugs; Z79.899 Other long term (current) drug therapy; Z88.0 Allergy status to penicillin
CPT/HCPCS: 00812; 88305; J1610; J2003; J2704; J7121